=== PATIENT | male | born 1960 | race African-American/Black ===

== ENCOUNTER 2016-08-30 10:17 | Inpatient (IN) | payer MEDICARE, OTHER ==
[~2016-08-30] VITALS: Ht 172.7 cm; Wt 109.9 kg
[~2016-08-30 10:17] MED LIST: ASPI1CPM8 PO; CLON-379 PO; DOXA1TAB38 PO; DOXA4TAB2 PO; ENAL20TA73 PO; GLYB1TAB3 PO; LOSA100T7 PO; NIFE60TA12 PO; SAXA5TAB2 PO; SMV40T PO; TAMS0.4C2 PO
[2016-08-30] MEDS ORDERED: CLON0.2T5 PO (11:03)
[2016-08-30] MEDS ORDERED: GABA100C14 PO (11:15)
[2016-08-30] MEDS ORDERED: SAXA5TAB2 PO (11:15)
[2016-08-30] MEDS ORDERED: HYD25 PO (11:16)
[2016-08-30] MEDS ORDERED: VALS320T11 PO (11:16)
[2016-08-30] MEDS ORDERED: METF500T4 PO (11:16)
[2016-08-30] MEDS ORDERED: LISI10TA2 PO (11:17)
--- NOTE | 2016-08-30 11:39 | RADRPT ---
PROCEDURE: CT Brain without contrast. CLINICAL INDICATION: Possible stroke. Left-sided weakness. TECHNIQUE: CT scan of the brain was performed on a multidetector high-resolution CT scan. Axial im aging was obtained of the brain without contrast administration. Coronal and sagittal reformatted i mages were obtained from the axial source images. Standard CT scan of the head without contrast prot ocols were performed. The total exam CTDI equals 50.33 mGy and the total exam DLP equals 715.55 mGy-cm. One or more of the following dose reduction techniques were used: - Automated exposure control. - Adjustment of the mA and/or kV according to patient size. Use of iterative reconstruction technique. COMPARISON: None FINDINGS: The ventricular system and peripheral CSF spaces are proportionate prominent consistent with mild ge neralized cerebral atrophy. Negative for intracranial masses hemorrhages or midline shift. Mild no nspecific periventricular deep white matter change consistent with chronic microvascular ischemic ch anges. The rangel-white matter interfaces unremarkable. New there is misregistration artifact presen t but no definite calvarial fracture or destructive lesion. There is mild bilateral ethmoid sinus d isease. Remainder the paranasal sinuses and mastoids visualized are unremarkable. IMPRESSION: 1. No evidence of intracranial masses hemorrhages or midline shift. 2. Mild nonspecific chronic microvascular scan changes. 3. Mild bilateral ethmoid sinus disease. RPTAT:AAJJ Physician Nathan Date Time Electronically viewed and signed by Physician Nathan on 08/30/2016 11:39 BM/
[2016-08-30 11:40] LABS: BASOPHILS % 0.4 % (0.0-2.0); EOSINOPHILS # 0.1 10^3/ul (0.0-0.5); EOSINOPHILS % 0.9 % (0.0-7.0); HEMATOCRIT 42.2 % (42.0-52.0); HEMOGLOBIN 14.5 g/dl (14.0-18.0); LYMPHOCYTES # 1.6 10^3/ul (0.8-2.9); LYMPHOCYTES % 25.7 % (15.0-51.0); MEAN CORPUSCULAR HEMOGLOBIN 31.6 pg (29.0-33.0); MEAN CORPUSCULAR HGB CONC 34.4 g/dl (32.0-37.0); MEAN PLATELET VOLUME 8.7 fl (7.4-10.4); MONOCYTE # 0.6 10^3/ul (0.3-0.9); MONOCYTES % 9.8 % (0.0-11.0); NEUTROPHILS % 63.2 % (39.0-77.0); PLATELET COUNT 218 10^3/UL (140-440); RED BLOOD COUNT 4.59 10^6/ul (4.70-6.10); RED CELL DISTRIBUTION WIDTH 13.6 % (11.5-14.5); UNCORRECTED WBC 6.3 10^3/ul (4.8-10.8); WHITE BLOOD COUNT 6.3 10^3/ul (4.8-10.8)
[2016-08-30 11:42] LABS: CHLORIDE 93 mmol/L (97-110); SODIUM 138 mmol/L (135-144)
[2016-08-30 11:43] LABS: POTASSIUM 3.3 mmol/L (3.5-5.1)
[2016-08-30 11:45] LABS: CREATININE 0.83 mg/dl (0.61-1.24)
[2016-08-30 11:46] LABS: ANION GAP 13 (8-16); BLOOD UREA NITROGEN 12 mg/dl (7-20); CALCIUM 9.2 mg/dl (8.4-10.2); CARBON DIOXIDE 35 mmol/L (21-31); GLUCOSE 300 mg/dl (70-220)
[2016-08-30 11:47] LABS: CONDITION 1
[2016-08-30] MEDS ORDERED: INSULIN LISPRO 100 UNIT/ML VIAL SC STA (11:57)
[2016-08-30] MEDS ORDERED: ASPIRIN 325 MG TAB PO ONE (12:00)
[2016-08-30 12:02] LABS: TROPONIN-I < 0.012 ng/ml (0.00-0.12)
--- NOTE | 2016-08-30 12:04 | RADRPT ---
PROCEDURE: XR Chest. CLINICAL INDICATION: chest pain, CVA TECHNIQUE: Single frontal view of the chest was obtained COMPARISON: 08/19/2009 FINDINGS: The heart and mediastinum are within normal limits. The lungs are clear. There is no pleural effusion or pneumothorax. RPTAT: AA IMPRESSION: No acute disease. .Clyde Noriega MD, MD Date Time Electronically viewed and signed by .Clyde Noriega MD, MD on 08/30/2016 12:04 .S/
[2016-08-30] MEDS ORDERED: ACETAMINOPHEN 325 MG TAB PO PRN (12:30)
[2016-08-30] MEDS ORDERED: ONDANSETRON 4 MG INJ IV PRN (12:30)
[2016-08-30] MEDS: SOD CHLORIDE 0.9% 1,000 ML IV SCH (12:57)
[2016-08-30] MEDS ORDERED: ONDANSETRON 4 MG TAB PO PRN (13:00)
[2016-08-30] MEDS ORDERED: GLUCOSE GEL 15 GRAM TUBE BUCCAL PRN (13:00)
[2016-08-30] MEDS ORDERED: DOCUSATE SODIUM 100 MG CAP PO PRN (13:00)
[2016-08-30] MEDS ORDERED: GLUCAGON 1 MG INJ IM PRN (13:00)
[2016-08-30] MEDS ORDERED: NACL 0.9% 3 ML SYG IV SCH (13:00)
[2016-08-30] MEDS ORDERED: GLUCOSE GEL 15 GRAM TUBE PO PRN ×2 (13:00)
[2016-08-30] MEDS ORDERED: DEXTROSE 50% 50 ML SYRINGE IV PRN ×2 (13:00)
--- NOTE | 2016-08-30 13:31 | ERA ---
ER Documentation Chief Complaint Date/Time DATE: 08/30/16 TIME: 13:27 Chief Complaint headache and left side body numbness for 4 days. unsteady gait HPI Patient is a 48-year-old male with stroke, hypertension, and diabetes who presents with stroke. The patient was seen by Dr. Turpin in the office today and was sent to the ER for stroke. The patient has a history of stroke as well. The patient has had tearing from his left eye and left arm numbness. He says "I cannot feel it". He has slurred speech as well. The symptoms started 4 -5 days ago. Upon review of old medical records he has multiple visits for various complaints. ROS All systems reviewed and are negative except as per history of present illness. Medications Home Meds Reported Medications Lisinopril* (Lisinopril*) 10 Mg Tablet, 10 MG PO DAILY, #30 TAB 08/30/16 Metformin* (Glucophage*) 500 Mg Tab, 500 MG PO BID, #30 TAB 08/30/16 Valsartan* (Diovan*) 320 Mg Tablet, 320 MG PO DAILY, TAB 08/30/16 Hydrochlorothiazide* (Hydrochlorothiazide*) 25 Mg Tab, 25 MG PO DAILY, #30 TAB 08/30/16 Saxagliptin Hcl* (Onglyza*) 5 Mg Tablet, 5 MG PO DAILY, TAB 08/30/16 Gabapentin* (Gabapentin*) 100 Mg Capsule, 100 MG PO TID, #90 CAP 08/30/16 Clonidine Hcl* (Clonidine Hcl*) 0.2 Mg Tablet, 0.2 MG PO Q8, TAB 08/30/16 Nifedipine* (Nifedical XL*) 60 Mg/Bottle Tab.osm.24, 60 MG PO DAILY 12/01/12 Doxazosin Mesylate* (Cardura*) 4 Mg Tablet, 4 MG PO DAILY 12/01/12 Discontinued Reported Medications Losartan Potassium* (Losartan Potassium*) 100 Mg Tablet, 100 MG PO DAILY 12/01/12 Aspirin-Dipyridamole* (Aggrenox*) 1 Each Cpmp.12hr, 1 EACH PO BID 12/01/12 Glyburide, Micro-Metformin Hcl (Glyburid-Metformin) 1 Tab Tablet, 1 TAB PO BID 12/01/12 Enalapril Maleate* (Vasotec*) 20 Mg Tablet, 20 MG PO DAILY 12/01/12 Doxazosin Mesylate* (Cardura*) 1 Mg Tablet, 1 MG PO DAILY 12/01/12 Tamsulosin Hcl* (Tamsulosin Hcl*) 0.4 Mg Cap.er.24h, 0.4 MG PO DAILY 12/01/12 Saxagliptin Hcl* (Onglyza*) 5 Mg Tablet, 5 MG PO DAILY 12/01/12 Simvastatin (Simvastatin) 40 Mg Tablet, 40 MG PO HS 12/01/12 Clonidine Hcl* (Clonidine Hcl*) 0.1 Mg Tab, 0.3 MG PO TID 12/01/12 Allergies Allergies: Coded Allergies: No Known Drug Allergy (Verified Allergy, Unknown, 08/30/16) PMhx/Soc History of Surgery: Yes (knee 1998) Hx Neurological Disorder: Yes (cva 2001) Hx Respiratory Disorders: No Hx Cardiac Disorders: No Hx Miscellaneous Medical Probl: Yes (DM. HTN, HIGH CHOLESTEROL) Hx Alcohol Use: No Hx Substance Use: No Hx Tobacco Use: Yes Smoking Status: Former smoker FmHx Family History: No diabetes Physical Exam Vitals Vital Signs Date Time Temp Pulse Resp B/P Pulse Ox O2 Delivery O2 Flow Rate FiO2 08/30/16 12:43 98.4 51 16 124/81 100 Room Air 08/30/16 10:30 98.1 64 16 110/80 100 Room Air 08/30/16 10:22 98.6 73 20 152/80 98 Physical Exam Const: Mild distress Head: Atraumatic Eyes: Normal Conjunctiva ENT: Normal External Ears, Nose and Mouth. Neck: Full range of motion..~ No meningismus. Resp: Clear to auscultation bilaterally Cardio: Regular rate and rhythm, no murmurs Abd: Soft, non tender, non distended. Normal bowel sounds Skin: No petechiae or rashes Back: No midline or flank tenderness Ext: No cyanosis, or edema Neur: Slurred speech, left-sided facial droop, numbness of the left arm Psych: Normal Mood and Affect Result Diagram: 08/30/16 1030 08/30/16 1030 Results 24 hrs Laboratory Tests Test 08/30/16 10:30 08/30/16 11:54 Anion Gap 13 Basophils # 0.010^3/ul Basophils % 0.4% Blood Urea Nitrogen 12mg/dl Calcium Level 9.2mg/dl Carbon Dioxide Level 35mmol/L Chloride Level 93mmol/L Creatinine 0.83mg/dl Eosinophils # 0.110^3/ul Eosinophils % 0.9% Glucose Level 300mg/dl Hematocrit 42.2% Hemoglobin 14.5g/dl Hemoglobin A1c 10.7% Lymphocytes # 1.610^3/ul Lymphocytes % 25.7% Mean Corpuscular Hemoglobin 31.6pg Mean Corpuscular Hemoglobin Concent 34.4g/dl Mean Corpuscular Volume 92.0fl Mean Platelet Volume 8.7fl Monocytes # 0.610^3/ul Monocytes % 9.8% Neutrophils # 4.010^3/ul Neutrophils % 63.2% Nucleated Red Blood Cells # 0.010^3/ul Nucleated Red Blood Cells % 0.0/100WBC Platelet Count 49296^3/UL Potassium Level 3.3mmol/L Red Blood Count 4.5910^6/ul Red Cell Distribution Width 13.6% Sodium Level 138mmol/L Troponin I < 0.012ng/ml White Blood Count 6.310^3/ul Bedside Glucose 263mg/dL Current Medications Medications (Trade) Dose Ordered Sig/Nadine Route PRN Reason Start Time Stop Time Status Last Admin Dose Admin Insulin Human Lispro (Humalog) 10 unit ONCE STAT SC 08/30/16 11:57 08/30/16 11:58 DC 08/30/16 12:11 Aspirin (Aspirin) 325 mg ONCE ONCE PO 08/30/16 12:00 08/30/16 12:01 DC 08/30/16 12:11 Ondansetron HCl (Zofran Inj) 4 mg ER BRIDGE PRN IV NAUSEA AND/OR VOMITING 08/30/16 12:30 08/31/16 12:29 Acetaminophen (Tylenol Tab) 650 mg ER BRIDGE PRN PO MILD PAIN/FEVER 08/30/16 12:30 08/30/16 12:55 DC Doxazosin Mesylate (Cardura) 4 mg HS PO 08/31/16 21:00 Gabapentin (Neurontin) 100 mg TID PO 08/30/16 13:00 Hydrochlorothiazide (Hydrochlorothiazide) 25 mg DAILY PO 08/31/16 09:00 08/31/16 09:00 DC Lisinopril (Zestril) 10 mg DAILY PO 08/31/16 09:00 Metformin HCl (Glucophage) 500 mg BID PO 08/30/16 21:00 08/30/16 21:00 DC Nifedipine (Procardia Xl) 30 mg DAILY PO 08/31/16 09:00 Saxagliptin Hydrochloride (Onglyza) 5 mg DAILY PO 08/31/16 09:00 Valsartan (Diovan) 160 mg DAILY PO 08/31/16 09:00 08/31/16 09:00 DC Miscellaneous Information 1 ea NOTE XX 08/30/16 13:00 Glucose (Glutose) 15 gm Q15M PRN PO DECREASED GLUCOSE 08/30/16 13:00 Glucose (Glutose) 22.5 gm Q15M PRN PO DECREASED GLUCOSE 08/30/16 13:00 Dextrose (D50w Syringe) 25 ml Q15M PRN IV DECREASED GLUCOSE 08/30/16 13:00 Dextrose (D50w Syringe) 50 ml Q15M PRN IV DECREASED GLUCOSE 08/30/16 13:00 Glucagon (Glucagen) 1 mg Q15M PRN IM DECREASED GLUCOSE 08/30/16 13:00 Glucose (Glutose) 15 gm Q15M PRN BUCCAL DECREASED GLUCOSE 08/30/16 13:00 Hydrochlorothiazide (Hydrochlorothiazide) 12.5 mg DAILY PO 08/31/16 09:00 Metformin HCl (Glucophage) 1,000 mg BID PO 08/30/16 21:00 Insulin Aspart (Novolog Insulin Pen) NOVOLOG *MILD* ALGORITHM WITH MEALS BEDTIME SC 08/30/16 18:00 Miscellaneous Information (* Miscellaneous Pharmacy Order) HYPOGLYCEMIA PROTOCOL w... ONCE ONCE XX 08/30/16 13:00 08/30/16 13:01 DC Miscellaneous Information (* Miscellaneous Pharmacy Order) Discontinue Glyburide, Glipizide,... ONCE ONCE XX 08/30/16 13:00 08/30/16 13:01 DC Miscellaneous Information Discontinue all previ... ONCE ONCE XX 08/30/16 13:00 08/30/16 13:01 DC Sodium Chloride (NS) 1,000 ml @ 70 mls/hr [id number] IV 08/30/16 12:43 08/30/16 12:57 IV Flush (NS 3 ml) 3 ml PER PROTOCOL IV 08/30/16 13:00 Ondansetron HCl (Zofran Tab) 4 mg Q6H PRN PO NAUSEA AND/OR VOMITING 08/30/16 13:00 Aspirin (Aspirin) 81 mg DAILY PO 08/31/16 09:00 Acetaminophen (Tylenol Tab) 650 mg Q6H PRN PO PAIN LEVEL 1-3 OR FEVER 08/30/16 13:00 Docusate Sodium (Colace) 100 mg Q12H PRN PO CONSTIPATION 08/30/16 13:00 Enoxaparin Sodium (Lovenox) 40 mg DAILY SC 08/31/16 09:00 Procedures/MDM EKG read by me: Rate/Rhythm: Regular rate and rhythm at a rate of 60 Intervals: Normal Impression: Sinus rhythm with flipped T waves in the lateral leads CT scan shows no acute process per radiology. Patient is a 48-year-old male with multiple risk factors who presents with what appears to be an acute stroke. He is outside the window for TPA as the symptoms started 4-[address] scan shows no intrarenal hemorrhage or mass. The patient was given aspirin after he passed a swallow evaluation. The patient had NIH stroke scale performed by nursing. The patient will be admitted to a telemetry bed. I spoke with Dr. Turpin who asked me to admit to the panel team. I spoke with Dr. Tapia for admission to a telemetry bed. He has hyperglycemia but no diabetic ketoacidosis and was given 10 units of Humalog subcutaneous. Departure Diagnosis: Primary Impression: Stroke Qualified Code: I63.9 - Cerebrovascular accident (CVA), unspecified mechanism Additional Impressions: Numbness Hyperglycemia Condition: KRISHAN Mays MD Aug 30, 2016 13:31
[2016-08-30 13:41] LABS: INR 1.01; PARTIAL THROMBOPLASTIN TIME 32.5 Sec (25.0-35.0); PROTIME 13.3 Sec (12.2-14.2)
[2016-08-30] MEDS: GABAPENTIN 100 MG CAP PO SCH ×2 (13:42→21:36)
[2016-08-30] MEDS: ACETAMINOPHEN 325 MG TAB PO PRN ×2 (14:03→18:54)
--- NOTE | 2016-08-30 14:22 | RADRPT ---
PROCEDURE: Carotid Doppler ultrasound CLINICAL INDICATION: Carotid stenosis. TIA. TECHNIQUE: Carotid duplex criteria: Multiple real time, rangel scale, and color flow and spectral w aveform analysis Doppler ultrasound images of the carotid bifurcations were obtained. Measurements of carotid stenosis is based on peak systolic and diastolic velocity parameters that correlate the r esidual internal carotid diameter with [place] symptomatic carotid endarterectomy trial (NASC ET) based stenosis levels. COMPARISON: None. FINDINGS: On the right, there is no significant plaque at the internal carotid artery bulb . The peak ICA velocity is 19.6 cm/sec. The ICA/CCA ratio there is 0.6. There is no spectral broadening . The external carotid artery is patent. The vertebral artery has antegrade flow. On the left, there is no significant plaque at the internal carotid artery bulb . The peak ICA velocity is 27.9 cm/sec. The ICA/CCA ratio there is 0.7. There is no spectral broadening . The external carotid artery is patent. The vertebral artery has antegrade flow. IMPRESSION: 1. No significant stenosis of the right internal carotid artery. 2. No significant stenosis of the left internal carotid artery. 3. Antegrade flow in the vertebral arteries. PRIMARY PARAMETERS ADDITIONAL PARAMETERS DEGREE OF STENOSIS: ICA PSV cm/s PLAQUE ESTIMATE % ICA/CCA PSV RATIO ICA E DV cm/s NORMAL <125 cm/s NONE < 2.0 < 40 cm/s < 50% >125 cm/s < 50% > 2.0 > 40 cm/s 50% - 69% 125 -230 cm/s > 50% 2.0 - 4.0 40 - 100 cm/s >70% < OCCLUSION > 230 cm/s > 70% > 4.0 > 100 cm/s TOTAL OCCLUSION UNDETECTABLE VISIBLE PLAQUE 100% N/A N/A RPTAT:AAJJ Physician Kenny Date Time Electronically viewed and signed by Physician Kenny on 08/30/2016 14:22 MARLEN/
[2016-08-30 15:20] VITALS: TEMP 98.6
--- NOTE | 2016-08-30 15:21 | RADRPT ---
PROCEDURE: MRI Brain without contrast. CLINICAL INDICATION: Transient ischemic attack TECHNIQUE: Multiplanar MRI of the brain without contrast was performed on a 3.0 T scanner with the following sequences obtained: T1-weighted, T2-weighted/FLAIR, diffusion weighted (with ADC map), GR E. COMPARISON: CT brain 09/04/2016, MRI brain 04/16/2009 FINDINGS: There is a very small focal area of encephalomalacia at the left frontal lobe anterior - inferiorly, probably post-traumatic given location, with mild adjacent gliosis. No acute/recent ischemic infar ction or intracranial hemorrhage / blood degradation products are identified. No extra-axial fluid collection is seen. There is no mass effect. No midline shift is identified. The ventricles and sulci are mild to moderate enlarged, compatible with a volume loss. Flow voids are identified in the proximal intracranial arteries and dural sinuses suggesting patency . Noted is partial bilateral ethmoid air cell opacification with mucosal thickening, mild to moderate right and mild left sphenoid sinus mucosal thickening, and severe bilateral maxillary sinus mucosal thickening. IMPRESSION: 1. No evidence of acute intracranial pathology. 2. Small area of left frontal encephalomalacia, likely post-traumatic. 3. Mild to moderate volume loss. RPTAT: VV .Manpreet Manning MD, Date Time Electronically viewed and signed by .Manpreet Manning MD, on 08/30/2016 15:21 .O/
--- NOTE | 2016-08-30 16:30 | RADRPT ---
Echocardiogram Report Patient Name: CARISA KOENIG Gender: Male Date: 1960 Study Date: 30-Aug-2016 Group Account Director: Anselmo Lagos RDCS Location: [facility] Ref. Physician: RICK AN Quality: Good Procedures: Transthoracic echocardiogram with complete 2D, M-Mode, and doppler examination. Indications: Transient Ischemic Attack. 2D/M Mode Doppler Measurement Value Normal Ranges Measurement Value Normal Ranges LVIDd 2D 5.4 3.5 - 5.6 cm AV Peak Elliot 1.5 m/sec LVIDs 2D 2.8 2.1 - 4.1 cm AV Peak PG 9.0 mmHg FS 2D 48.2 % LVOT Peak Elliot 1.3 m/sec LVPWd 2D 1.1 0.6 - 1.1 cm LVOT Peak PG 7.0 mmHg IVSd 2D 1.0 0.6 - 1.1 cm MV E Peak Elliot 0.6 m/sec IVS/LVPW 2D 1.0 MV A Peak Elliot 0.8 m/sec AoR Diam 2D 3.0 2.0 - 3.7 cm MV E/A 0.8 LA/Ao 2D 1 0 - 1 MV Decel Time 225 msec EDV 2D 155.0 cm3 MV E/A 0.8 ESV 2D 21.5 cm3 LA Dimen 2D 3.2 2.3 - 4.0 cm Findings Left Ventricle: Normal left ventricular systolic function. Normal left ventricular cavity size. Mild concentric left ventricular hypertrophy. Ejection fraction is visually estimated at 60 %. Tissue Doppler/Mitral Doppler indices are consistent with impaired relaxation (Stage I diastolic dysfunction). Right Ventricle: Normal right ventricular size. Normal right ventricular systolic function. Left Atrium: The left atrium is normal in size. Right Atrium: The right atrium is normal in size. Mitral Valve: Normal appearance and function of the mitral valve with trace physiologic regurgitation. Aortic Valve: Normal appearance of the aortic valve. No significant aortic stenosis or insufficiency. Tricuspid Valve: Normal appearance of the tricuspid valve. Unable to obtain RVSP due to minimal presence of tricuspid regurgitation. Pulmonic Valve: Normal pulmonic valve appearance. There is trace pulmonic regurgitation. Pericardium: Normal pericardium with no significant pericardial effusion. Aorta: Normal aortic root. IVC: Normal size and normal respiratory collapse consistent with normal right atrial pressure. Conclusions 1.Normal left ventricular systolic function. Normal left ventricular cavity size. Mild concentric left ventricular hypertrophy. Ejection fraction is visually estimated at 60 %. Tissue Doppler/Mitral Doppler indices are consistent with impaired relaxation (Stage I diastolic dysfunction). 2.Normal appearance and function of the mitral valve with trace physiologic regurgitation. 3.Normal appearance of the tricuspid valve. Unable to obtain RVSP due to minimal presence of tricuspid regurgitation. 4.Normal pulmonic valve appearance. There is trace pulmonic regurgitation. Electronically Signed By: Karlos Ramon 30-Aug-2016 16:28:59 -0800 Patient Name: CARISA KOENIG Study Date: 30-Aug-2016 [id number]
[2016-08-30 17:06] VITALS: PULSE 51
[2016-08-30 17:38] VITALS: Ht 172.7 cm; Wt 109.9 kg
[2016-08-30] MEDS: INSULIN ASPART [NOVOLOG] 3 ML PEN SC SCH ×2 (17:48→21:00)
[2016-08-30] MEDS ORDERED: LINAGLIPTIN 5 MG TABLET PO SCH (18:30)
--- NOTE | 2016-08-30 18:44 | CONS ---
Date/Time of Note Date/Time of Note DATE: 08/30/16 TIME: 18:37 Assessment/Plan Assessment/Plan Problems: (1) Morbid obesity due to excess calories Status: Chronic Comment: While is in the hospital will have him on a diabetic diet with calorie restriction. (2) Type 2 diabetes mellitus with hyperglycemia, without long-term current use of insulin Status: Chronic Comment: His current level of diabetic control is poor. I do not believe this represents hypercortisolism as there are no outward stigmata of hypercortisolism on the physical exam. He may however have another interesting cord endocrine abnormality (3) Hypertension Status: Chronic Comment: At this point is labeled as chronic hypertension. The question my mind is whether or not he might have primary hyperaldosteronism. An male left salicylate less common diagnosis but given the persistent hypokalemia over the years despite being on ECTOR and arms I am questioning this. We will go ahead and do aldosterone and plasma rennin activities (4) Hypokalemia Status: Chronic Comment: As above we will replace (5) Diastolic dysfunction Status: Chronic Comment: Noted. He probably would do well instead of being on Procardia to be on either verapamil or diltiazem or a low-dose beta-mindi. (6) Obstructive sleep apnea Status: Chronic Comment: He refuses to wear the CPAP mask (7) Hyperlipidemia associated with type 2 diabetes mellitus Status: Chronic Comment: Noted Consultation Date/Type/Reason Admit Date/Time Aug 30, 2016 at 10:42 Date of Consultation: Aug 30, 2016 Type of Consultation: Endocrinology Reason for Consultation Diabetes mellitus type 2 with poor control; significant hypertension with persistent hypokalemia despite the use of ECTOR and ARB drug Referring Provider: RICK AN MD Hx of Present Illness 56-year-old gentleman with a history of hypertension and diabetes mellitus type 2. He has a somewhat challenging historian. He came in with the possibility of a new acute neurologic event. He is somewhat guarded in his history. In review of his old records it turns out he has a long history of very severe hypertension and has had hypokalemia. An old abdominal CT scan is in the chart and while the impression does not identify an adrenal abnormality it is actually in there. 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, 2009 ; tobacco usage; gastroesophageal reflux disease; nonobstructive coronary disease on cardiac catheterization 2009 Medical History: diabetes, high cholesterol, hypertension Past Surgical History Status post post left knee surgery; reported status post vascular bypass to both lower extremities (I am not certain that he actually had that right now I believe is describing his coronary angiography) Family History Significant Family History: diabetes, hypertension Social History Alcohol Use: none Smoking Status: Former smoker (He reports he recently quit smoking but the chart indicates that he told others he quit in 2001 I suspect this more recent than that) Drug Use: none Exam/Review of Systems Vital Signs Vitals Vital Signs Date Time Temp Pulse Resp B/P Pulse Ox O2 Delivery O2 Flow Rate FiO2 08/30/16 17:06 51 08/30/16 15:20 98.6 16 141/67 100 Room Air Exam Constitutional: alert, oriented Respiratory: clear to auscultation, normal air movement Cardiovascular: nl pulses, regular rate and rhythm Results Result Diagram: 08/30/16 1030 08/30/16 1030 Results 24 hrs Laboratory Tests Test 08/30/16 10:30 08/30/16 11:54 08/30/16 17:06 Activated Partial Thromboplast Time 32.5 Anion Gap 13 Basophils # 0.0 Basophils % 0.4 Blood Urea Nitrogen 12 Calcium Level 9.2 Carbon Dioxide Level 35 H Chloride Level 93 L Creatinine 0.83 Eosinophils # 0.1 Eosinophils % 0.9 Glucose Level 300 H Hematocrit 42.2 Hemoglobin 14.5 Hemoglobin A1c 10.7 H INR International Normalized Ratio 1.01 Lymphocytes # 1.6 Lymphocytes % 25.7 Mean Corpuscular Hemoglobin 31.6 Mean Corpuscular Hemoglobin Concent 34.4 Mean Corpuscular Volume 92.0 Mean Platelet Volume 8.7 Monocytes # 0.6 Monocytes % 9.8 Neutrophils # 4.0 Neutrophils % 63.2 Nucleated Red Blood Cells # 0.0 Nucleated Red Blood Cells % 0.0 Platelet Count 218 Potassium Level 3.3 L Prothrombin Time 13.3 Prothrombin Time Ratio 1.0 Red Blood Count 4.59 L Red Cell Distribution Width 13.6 Sodium Level 138 Troponin I < 0.012 White Blood Count 6.3 Bedside Glucose 263 H 126 Medications Medications Current Medications Gabapentin (Neurontin) 100 mg TID PO Last administered on 08/30/16 13:42; Admin Dose 100 MG; Start 08/30/16 at 13:00 Saxagliptin Hydrochloride (Onglyza) 5 mg DAILY PO ; Start 08/31/16 at 09:00 Miscellaneous Information 1 ea NOTE XX ; Start 08/30/16 at 13:00 Glucose (Glutose) 15 gm Q15M PRN PO DECREASED GLUCOSE; Start 08/30/16 at 13:00 Glucose (Glutose) 22.5 gm Q15M PRN PO DECREASED GLUCOSE; Start 08/30/16 at 13: 00 Dextrose (D50w Syringe) 25 ml Q15M PRN IV DECREASED GLUCOSE; Start 08/30/16 at 13:00 Dextrose (D50w Syringe) 50 ml Q15M PRN IV DECREASED GLUCOSE; Start 08/30/16 at 13:00 Glucagon (Glucagen) 1 mg Q15M PRN IM DECREASED GLUCOSE; Start 08/30/16 at 13:00 Glucose (Glutose) 15 gm Q15M PRN BUCCAL DECREASED GLUCOSE; Start 08/30/16 at 13 :00 Hydrochlorothiazide (Hydrochlorothiazide) 12.5 mg DAILY PO ; Start 08/31/16 at 09:00 Metformin HCl 1000 mg 1,000 mg BID PO ; Start 08/30/16 at 21:00 Sodium Chloride (NS) 1,000 ml @ 70 mls/hr [id number] IV Last administered on 08/30 12:57; Admin Dose 70 MLS/HR; Start 08/30/16 at 12:43 Ondansetron HCl (Zofran Tab) 4 mg Q6H PRN PO NAUSEA AND/OR VOMITING; Start at 13:00 Aspirin (Aspirin) 81 mg DAILY PO ; Start 08/31/16 at 09:00 Acetaminophen (Tylenol Tab) 650 mg Q6H PRN PO PAIN LEVEL 1-3 OR FEVER Last administered on 08/30/16 14:03; Admin Dose 650 MG; Start 08/30/16 at 13:00 Docusate Sodium (Colace) 100 mg Q12H PRN PO CONSTIPATION; Start 08/30/16 at 13: 00 Enoxaparin Sodium (Lovenox) 40 mg DAILY SC ; Start 08/31/16 at 09:00 Lisinopril (Zestril) 20 mg DAILY PO ; Start 08/31/16 at 09:00; Status UNV Doxazosin Mesylate (Cardura) 8 mg HS PO ; Start 08/31/16 at 21:00; Status UNV YARY MAGALLON MD Aug 30, 2016 18:44
[2016-08-30] MEDS: POTASSIUM CHLORIDE (SR) 20 MEQ TAB PO SCH (18:54)
[2016-08-30 20:15] VITALS: BP 151/96; RESP 18
[2016-08-30 20:46] VITALS: PULSE 56
[2016-08-30] MEDS ORDERED: DOXAZOSIN 4 MG TAB PO SCH (21:00)
[2016-08-30] MEDS ORDERED: metFORMIN 500 MG TAB PO SCH (21:00)
[2016-08-30] MEDS: metFORMIN 500 MG TAB PO SCH (21:36)
[2016-08-31] VITALS (13 sets, daily range): BP systolic 154–193; BP diastolic 80–93; PULSE 61–75; RESP 18–21
--- NOTE | 2016-08-31 02:39 | HP ---
DATE OF ADMISSION: 08/30/2016 CONSULTANTS: 1. Neurology. 2. Cardiology. PRIMARY CARE PHYSICIAN: Dr. Turpin. CHIEF COMPLAINT: Lightheadedness and gait disturbances. HISTORY OF PRESENT ILLNESS: This is a 56-year-old gentleman with past medical history of CVA in 200 9, hypertension, diabetes mellitus, dyslipidemia, CVA with left-sided residual, and speech impairmen t, who had an appointment with his primary care physician this morning and was found to have lighthe adedness and dizziness and gait disturbance. He was transferred to [facility] for further evaluation and rule out CVA. The patient upon arrival to the emergency room, was found to have a temperature of 98.6, pulse 73, respiration rate 20, blood pressure 152/80, oxygen 98% on room air. CT of the brain was obtained, which showed no evidence of intracranial masses, hemorrhage or midline shift, mild nonspecific chronic microvascular scan changes, mild bilateral ethmoid sinus dis ease. Patient's EKG demonstrated sinus rhythm with flipped T-wave in the lateral leads, regular rhy thm and rate with ventricular rate of 60. The patient denies having any chest pain, shortness of br eath, nausea, vomiting, diarrhea, headache. Positive for dizziness. No lightheadedness. No change in visual acuity, diplopia, photophobia. No abdominal pain. No dysuria, hematuria, urgency, incon tinence. No recent travel history. No sick contact. No recent fall or trauma to his head or neck. No restricted range of motion in upper and lower extremities, or neck pain. PAST MEDICAL AND SURGICAL HISTORY: As above per HPI. MEDICATIONS: 1. Clonidine 0.2 mg 2. Doxazosin/Cardura 4 mg. 3. Gabapentin 100 mg. 4. Hydrochlorothiazide 25 mg. 5. Lisinopril 10 mg. 6. Metformin 500 mg. 7. Nifedipine XL 60 mg. 8. Onglyza 5 mg. 9. Diovan 325 mg. ALLERGIES: NO KNOWN DRUG ALLERGIES. FAMILY HISTORY: Positive for hypertension, diabetes mellitus, and dyslipidemia. SOCIAL HISTORY: Denies any history of smoking, alcohol, illicit drugs, although according to the art, he is a former smoker. REVIEW OF SYSTEMS: As above per HPI. Otherwise, 12 review of systems was found to be negative. PHYSICAL EXAMINATION: VITAL SIGNS: Temperature 98.6, pulse 88, respiration rate 16, blood pressure 141/67, oxygen 100% on room air. GENERAL APPEARANCE: The patient is lying in bed comfortably, no distress. He is awake, alert, orie nted. He is able to answer my questions properly. EYES AND ENT: lids are normal. Pupils are normal. Extraocular normal. Hearing grossly norm al. Lips, teeth, and gums are normal. Oral mucosa moist. NECK: Supple. Trachea is midline. No lymphadenopathy. RESPIRATORY: Effort is normal. Clear to auscultation bilaterally. CARDIOVASCULAR: Normal S1, S2. Regular rhythm and rate. No murmur, no bruits, no edema. Peripher al pulses, radial pulses palpable. Cap refill is normal. CHEST: Normal expansion of thorax during inspiration. GASTROINTESTINAL: Abdomen is soft, nontender, not distended. Bowel sounds present. No guarding, n o rebound. GENITOURINARY: Deferred. MUSCULOSKELETAL: Upper and lower extremities within normal limits. There is asymmetric strength of the left upper and lower extremity with minimal change of strength in the left upper extremity. It is minimal weakness, which according to him is chronic. NEUROLOGIC: Cranial nerves II through XII seem grossly intact. PSYCHIATRIC: He is awake, alert, oriented. LABORATORY WORK AND IMAGING: WBC 6.3, hemoglobin 14.5, hematocrit 42.2, platelets 218. Sodium 138, potassium 3.3, chloride 95, bicarbonate 35, BUN 12, creatinine 0.83, glucose 300, hemoglobin 10.7, calcium 9.2. Troponin 0.012. PT 13.3, INR 1.01. IMAGING: MRI of the brain showed no evidence of acute intracranial pathology, small area left front al encephalomalacia likely post-traumatic, mild to moderate volume loss. Carotid Doppler showed no significant stenosis of the right internal carotid artery, no significant stenosis of the left inter nal carotid artery, antegrade flow to vertebral arteries. A 2D echocardiogram showed normal ejectio n fraction with stage I diastolic dysfunction, mild concentric left ventricular hypertrophy, normal appearance and function of mitral valve, normal pulmonic valve, normal appearance of tricuspid valve . There is trace pulmonic regurgitation. ASSESSMENT AND PLAN: 1. Lightheadedness and dizziness with a history of cerebrovascular accident, to rule out transient ischemic attack. This also could have been secondary to polypharmacy and multiple blood pressure me dications. We will adjust patient's blood pressure medication. Neurology and Cardiology has been c onsulted. 2. Essential hypertension. As stated above, patient is polypharmacy. We will reevaluate and treat accordingly. 3. Diabetes mellitus, uncontrolled upon admission. Hemoglobin A1c is greater than 10. The patient has been placed on insulin sliding scale. Continue metformin. Plastics Fabricator And Assembler has been consulted. Patient has been placed on low carb diet. Continue Onglyza and metformin, and follow endocrinolog y recommendations. 4. History of cerebrovascular accident. The patient has been placed on aspirin. Continue blood pr essure treatment. Follow up lipid panel, and place patient on and statin accordingly. 5. For deep venous thrombosis prophylaxis, the patient has been placed on Lovenox. 6. For gastrointestinal prophylaxis, not indicated at this time. 7. We will continue to monitor patient closely. Further recommendations, management, and treatment as per clinical course. Total amount of time was spent for evaluation of patient and admission workup: 40 minutes. Dictated By: RICK WILSON/NABIL Conf#: [id number] DID#: [id number]
[2016-08-31] MEDS: ACETAMINOPHEN 325 MG TAB PO PRN ×2 (02:46→08:55)
[2016-08-31] MEDS: POTASSIUM CHLORIDE (SR) 20 MEQ TAB PO SCH ×2 (02:47→05:47)
[2016-08-31] MEDS: SOD CHLORIDE 0.9% 1,000 ML IV SCH (04:08)
[2016-08-31] MEDS: GABAPENTIN 100 MG CAP PO SCH ×3 (08:54→20:48)
[2016-08-31] MEDS: metFORMIN 500 MG TAB PO SCH ×2 (08:54→20:49)
[2016-08-31] MEDS: ASPIRIN 81 MG TAB PO SCH (08:55)
[2016-08-31] MEDS: ENOXAPARIN 40 MG/0.4 ML SYG SC SCH ×2 (08:56→09:00)
[2016-08-31] MEDS: INSULIN ASPART [NOVOLOG] 3 ML PEN SC SCH ×4 (08:57→20:50)
[2016-08-31] MEDS ORDERED: LISINOPRIL 10 MG TAB PO SCH (09:00)
[2016-08-31] MEDS ORDERED: VALSARTAN 160 MG TAB PO SCH (09:00)
[2016-08-31] MEDS ORDERED: NIFEdipine (XL) 60 MG TAB PO SCH (09:00)
[2016-08-31] MEDS ORDERED: HYDROCHLOROTHIAZIDE 25 MG TAB PO SCH (09:00)
[2016-08-31] MEDS ORDERED: SAXAGLIPTIN HYDROCHLORIDE 5 MG TAB PO SCH (09:00)
[2016-08-31] MEDS ORDERED: HYDROCHLOROTHIAZIDE 12.5 MG CAP PO SCH (09:00)
[2016-08-31] MEDS ORDERED: LISINOPRIL 20 MG TAB PO SCH (09:00)
[2016-08-31 09:38] LABS: POTASSIUM 3.6 mmol/L (3.5-5.1)
[2016-08-31 09:41] LABS: CREATININE 0.87 mg/dl (0.61-1.24)
[2016-08-31 09:42] LABS: CALCIUM 9.7 mg/dl (8.4-10.2); CHOL/HDL RATIO 4.9 RATIO; MAGNESIUM 1.9 mg/dl (1.7-2.5)
[2016-08-31] MEDS: LINAGLIPTIN 5 MG TABLET PO SCH (09:51)
[2016-08-31 10:27] LABS: BASOPHIL # 0.1 10^3/ul (0.0-0.1); BASOPHILS % 0.6 % (0.0-2.0); EOSINOPHILS # 0.1 10^3/ul (0.0-0.5); EOSINOPHILS % 0.6 % (0.0-7.0); HEMATOCRIT 44.2 % (42.0-52.0); HEMOGLOBIN 15.2 g/dl (14.0-18.0); LYMPHOCYTES # 1.9 10^3/ul (0.8-2.9); MEAN CORPUSCULAR HEMOGLOBIN 31.3 pg (29.0-33.0); MEAN CORPUSCULAR HGB CONC 34.4 g/dl (32.0-37.0); MEAN CORPUSCULAR VOLUME 91.1 fl (82.0-101.0); MEAN PLATELET VOLUME 10.1 fl (7.4-10.4); MONOCYTE # 0.6 10^3/ul (0.3-0.9); MONOCYTES % 6.7 % (0.0-11.0); NEUTROPHIL # 5.6 10^3/ul (1.6-7.5); PLATELET COUNT 261 10^3/UL (140-415); RED BLOOD COUNT 4.85 10^6/ul (4.70-6.10); RED CELL DISTRIBUTION WIDTH 12.7 % (11.5-14.5); WHITE BLOOD COUNT 8.2 10^3/ul (4.8-10.8)
--- NOTE | 2016-08-31 11:37 | CONS ---
Date/Time of Note Date/Time of Note DATE: 08/31/16 TIME: 11:31 Assessment/Plan Assessment/Plan Chief Complaint/Hosp Course 56 year old M with hx of obesity, HTN, DM, previous CVA with residual left sided weakness admitted with dizziness and gait instability. MRI shows no acute infarction, old left frontal encephalomalacia. -continue aspirin 81 mg for secondary stroke prevention optimization of diabetes HBA1C 10.7%, LDL currently at goal -BP<140/90 anti-hypertensives currently being adjusted -PT/OT evaluation no further neurologic work up advised at this time, continue current management thank you for involving me in his care Problems: Consultation Date/Type/Reason Admit Date/Time Aug 30, 2016 at 10:42 Date of Consultation: Aug 31, 2016 Type of Consultation: Neurology Reason for Consultation evaluation for CVA Referring Provider: RICK AN MD Hx of Present Illness 56 year old male with history of CVA 2008, hypertension, DM, dysarthria admitted with lightheadedness and dizziness, difficulty ambulating. He reports he came to the hospital with symptoms of burning eyes, and sore throat. He denies any current new neurologic symptoms, denies headache, loss of vision, new facial droop or dysarthria, no aphasia, no focal weakness. MRI Brain shows no acute pathology, left frontal encephalomalacia likely post-traumatic. no complaints Constitutional: no complaints (Denies fever chills or sweats) Respiratory: no complaints (No shortness of breath no wheezing) Cardiovascular: no complaints (Denies chest pain nausea or vomiting) Past Medical History Medical History: diabetes, high cholesterol, hypertension Social History Alcohol Use: none Smoking Status: Former smoker (He reports he recently quit smoking but the chart indicates that he told others he quit in 2001 I suspect this more recent than that) Drug Use: none Exam/Review of Systems Vital Signs Vitals Vital Signs Date Time Temp Pulse Resp B/P Pulse Ox O2 Delivery O2 Flow Rate FiO2 08/31/16 09:56 161/83 08/31/16 08:12 63 08/31/16 08:11 99.0 20 94 08/30/16 15:20 Room Air Intake and Output 08/30/16 08/30/16 08/31/16 15:00 23:00 07:00 Intake Total 1075 ml Balance 1075 ml Exam awake and alert oriented to self hospital date NAD morbidly obese no aphasia follows commands well CN: TEOFILO, VFF blinks to threat intact, Left CN VII palsy per patient old palate upgoing uvula midline scm/trap intact Motor: mild drift in left arm otherwise strength is 5/5 Coordination no ataxia Gait widebased no ataxia Results Result Diagram: 08/31/16 1014 08/31/16 0708 Results 24 hrs Laboratory Tests Test 08/30/16 11:54 08/30/16 17:06 08/30/16 21:38 08/31/16 07:08 Bedside Glucose 263 H 126 137 Anion Gap 18 H Blood Urea Nitrogen 11 Calcium Level 9.7 Carbon Dioxide Level 33 H Chloride Level 96 L Cholesterol Level 133 Cholesterol/HDL Ratio 4.9 Creatinine 0.87 Glucose Level 200 # HDL Cholesterol 27 L LDL Cholesterol, Calculated 63 Magnesium Level 1.9 Potassium Level 3.6 Sodium Level 143 Thyroid Stimulating Hormone (TSH) 0.500 Triglycerides Level 213 H Test 08/31/16 07:46 08/31/16 10:14 Bedside Glucose 202 Basophils # 0.1 Basophils % 0.6 Eosinophils # 0.1 Eosinophils % 0.6 Hematocrit 44.2 Hemoglobin 15.2 Lymphocytes # 1.9 Lymphocytes % 23.0 Mean Corpuscular Hemoglobin 31.3 Mean Corpuscular Hemoglobin Concent 34.4 Mean Corpuscular Volume 91.1 Mean Platelet Volume 10.1 Monocytes # 0.6 Monocytes % 6.7 Neutrophils # 5.6 Neutrophils % 68.40 Nucleated Red Blood Cells # 0.0 Nucleated Red Blood Cells % 0.0 Platelet Count 261 Red Blood Count 4.85 Red Cell Distribution Width 12.7 White Blood Count 8.2 # Medications Medications Current Medications Gabapentin (Neurontin) 100 mg TID PO Last administered on 08/31/16t 08:54; Admin Dose 100 MG; Start 08/30/16 at 13:00 Miscellaneous Information 1 ea NOTE XX ; Start 08/30/16 at 13:00 Glucose (Glutose) 15 gm Q15M PRN PO DECREASED GLUCOSE; Start 08/30/16 at 13:00 Glucose (Glutose) 22.5 gm Q15M PRN PO DECREASED GLUCOSE; Start 08/30/16 at 13: 00 Dextrose (D50w Syringe) 25 ml Q15M PRN IV DECREASED GLUCOSE; Start 08/30/16 at 13:00 Dextrose (D50w Syringe) 50 ml Q15M PRN IV DECREASED GLUCOSE; Start 08/30/16 at 13:00 Glucagon (Glucagen) 1 mg Q15M PRN IM DECREASED GLUCOSE; Start 08/30/16 at 13:00 Glucose (Glutose) 15 gm Q15M PRN BUCCAL DECREASED GLUCOSE; Start 08/30/16 at 13 :00 Hydrochlorothiazide (Hydrochlorothiazide) 12.5 mg DAILY PO Last administered on 08/31/16 08:55; Admin Dose 12.5 MG; Start 08/31/16 at 09:00 Metformin HCl 1000 mg 1,000 mg BID PO Last administered on 08/31/16 08:54; Admin Dose 1,000 MG; Start 08/30/16 at 21:00 Sodium Chloride (NS) 1,000 ml @ 70 mls/hr [id number] IV Last administered on 08/31 04:08; Admin Dose 70 MLS/HR; Start 08/30/16 at 12:43 Ondansetron HCl (Zofran Tab) 4 mg Q6H PRN PO NAUSEA AND/OR VOMITING; Start at 13:00 Aspirin (Aspirin) 81 mg DAILY PO Last administered on 08/31/16 08:55; Admin Dose 81 MG; Start 08/31/16 at 09:00 Acetaminophen (Tylenol Tab) 650 mg Q6H PRN PO PAIN LEVEL 1-3 OR FEVER Last administered on 08/31/16 08:55; Admin Dose 650 MG; Start 08/30/16 at 13:00 Docusate Sodium (Colace) 100 mg Q12H PRN PO CONSTIPATION; Start 08/30/16 at 13: 00 Enoxaparin Sodium (Lovenox) 40 mg DAILY SC ; Start 08/31/16 at 09:00 Lisinopril (Zestril) 20 mg DAILY PO Last administered on 08/31/16 08:55; Admin Dose 20 MG; Start 08/31/16 at 09:00 Doxazosin Mesylate (Cardura) 8 mg HS PO ; Start 08/31/16 at 21:00 Linagliptin (Tradjenta) 5 mg DAILY PO Last administered on 08/31/16 09:51; Admin Dose 5 MG; Start 08/31/16 at 10:00 BABATUNDE LUCIA MD Aug 31, 2016 11:37
[2016-08-31] MEDS ORDERED: POTASSIUM CHLORIDE (SR) 20 MEQ TAB PO STA (13:50)
--- NOTE | 2016-08-31 14:07 | CONS ---
Date/Time of Note Date/Time of Note DATE: 08/31/16 TIME: 14:04 Assessment/Plan Assessment/Plan Chief Complaint/Hosp Course 56-year-old gentleman with a history of hypertension and diabetes mellitus type 2. He has a somewhat challenging historian. He came in with the possibility of a new acute neurologic event. He is somewhat guarded in his history. In review of his old records it turns out he has a long history of very severe hypertension and has had hypokalemia. An old abdominal CT scan is in the chart and while the impression does not identify an adrenal abnormality it is actually in there. On the left-hand side Problems: (1) Hypertension Status: Chronic Comment: It is not 100% clear to me that this hypertension is primary essential hypertension; is quite possible this is a representation of hyperaldosteronism specifically primary hyperaldosteronism. The laboratory testing for this is drawn and in the lab but will take several days to come back. In the meantime given the persistent hypokalemia would like to replace his hydrochlorothiazide with low-dose Spironolactone at 25 mg once a day. He will continue on full dose ECTOR inhibitor as full dose alpha blockade. I would not use it dihydropyridine calcium channel mindi instead looking to use 1 of the other calcium channel blockers especially diltiazem versus a very low-dose beta-mindi given the known diastolic dysfunction (2) Hypokalemia Status: Chronic Comment: Correcting nicely please note that the aldosterone plasma renin activity were drawn while his serum potassium was 3.6 those results are pending (3) Obstructive sleep apnea Status: Chronic Comment: Noted the patient declines treatment (4) Type 2 diabetes mellitus with hyperglycemia, without long-term current use of insulin Status: Chronic Comment: His sugars are coming down with the minimal adjustments. Please note he is reticent to make any more aggressive changes. (5) Diastolic dysfunction Status: Chronic Comment: As above Consultation Date/Type/Reason Admit Date/Time Aug 30, 2016 at 10:42 Initial Consult Date 08/31/16 Type of Consultation: Endocrinology Reason for Consultation Diabetes mellitus type 2 out of control; hypertension on multiple medications with persistent hypokalemia Referring Provider: RICK AN MD 24 HR Interval Summary Constitutional: no complaints (Denies fevers chills or sweats) Detailed Summary Respiratory: no complaints Cardiovascular: no complaints Gastrointestinal: no complaints Exam/Review of Systems Vital Signs Vitals Vital Signs Date Time Temp Pulse Resp B/P Pulse Ox O2 Delivery O2 Flow Rate FiO2 08/31/16 12:04 74 08/31/16 11:47 98.4 21 160/80 98 08/30/16 15:20 Room Air Intake and Output 08/30/16 08/30/16 08/31/16 15:00 23:00 07:00 Intake Total 1075 ml Balance 1075 ml Exam Constitutional: alert, oriented Respiratory: clear to auscultation, normal air movement Cardiovascular: nl pulses, regular rate and rhythm Gastrointestinal: nl liver, spleen, non-tender, soft Results Result Diagram: 08/31/16 1014 08/31/16 0708 Results 24 hrs Laboratory Tests Test 08/30/16 17:06 08/30/16 21:38 08/31/16 07:08 08/31/16 07:46 Bedside Glucose 126 137 202 Anion Gap 18 H Blood Urea Nitrogen 11 Calcium Level 9.7 Carbon Dioxide Level 33 H Chloride Level 96 L Cholesterol Level 133 Cholesterol/HDL Ratio 4.9 Creatinine 0.87 Glucose Level 200 # HDL Cholesterol 27 L LDL Cholesterol, Calculated 63 Magnesium Level 1.9 Potassium Level 3.6 Sodium Level 143 Thyroid Stimulating Hormone (TSH) 0.500 Triglycerides Level 213 H Test 08/31/16 10:14 08/31/16 12:16 Basophils # 0.1 Basophils % 0.6 Eosinophils # 0.1 Eosinophils % 0.6 Hematocrit 44.2 Hemoglobin 15.2 Lymphocytes # 1.9 Lymphocytes % 23.0 Mean Corpuscular Hemoglobin 31.3 Mean Corpuscular Hemoglobin Concent 34.4 Mean Corpuscular Volume 91.1 Mean Platelet Volume 10.1 Monocytes # 0.6 Monocytes % 6.7 Neutrophils # 5.6 Neutrophils % 68.40 Nucleated Red Blood Cells # 0.0 Nucleated Red Blood Cells % 0.0 Platelet Count 261 Red Blood Count 4.85 Red Cell Distribution Width 12.7 White Blood Count 8.2 # Bedside Glucose 227 H Medications Medications Current Medications Gabapentin (Neurontin) 100 mg TID PO Last administered on 08/31/16t 12:38; Admin Dose 100 MG; Start 08/30/16 at 13:00 Miscellaneous Information 1 ea NOTE XX ; Start 08/30/16 at 13:00 Glucose (Glutose) 15 gm Q15M PRN PO DECREASED GLUCOSE; Start 08/30/16 at 13:00 Glucose (Glutose) 22.5 gm Q15M PRN PO DECREASED GLUCOSE; Start 08/30/16 at 13: 00 Dextrose (D50w Syringe) 25 ml Q15M PRN IV DECREASED GLUCOSE; Start 08/30/16 at 13:00 Dextrose (D50w Syringe) 50 ml Q15M PRN IV DECREASED GLUCOSE; Start 08/30/16 at 13:00 Glucagon (Glucagen) 1 mg Q15M PRN IM DECREASED GLUCOSE; Start 08/30/16 at 13:00 Glucose (Glutose) 15 gm Q15M PRN BUCCAL DECREASED GLUCOSE; Start 08/30/16 at 13 :00 Metformin HCl 1000 mg 1,000 mg BID PO Last administered on 08/31/16 08:54; Admin Dose 1,000 MG; Start 08/30/16 at 21:00 Sodium Chloride (NS) 1,000 ml @ 70 mls/hr [id number] IV Last administered on 08/31 04:08; Admin Dose 70 MLS/HR; Start 08/30/16 at 12:43 Ondansetron HCl (Zofran Tab) 4 mg Q6H PRN PO NAUSEA AND/OR VOMITING; Start at 13:00 Aspirin (Aspirin) 81 mg DAILY PO Last administered on 08/31/16 08:55; Admin Dose 81 MG; Start 08/31/16 at 09:00 Acetaminophen (Tylenol Tab) 650 mg Q6H PRN PO PAIN LEVEL 1-3 OR FEVER Last administered on 08/31/16 08:55; Admin Dose 650 MG; Start 08/30/16 at 13:00 Docusate Sodium (Colace) 100 mg Q12H PRN PO CONSTIPATION; Start 08/30/16 at 13: 00 Enoxaparin Sodium (Lovenox) 40 mg DAILY SC ; Start 08/31/16 at 09:00 Doxazosin Mesylate (Cardura) 8 mg HS PO ; Start 08/31/16 at 21:00 Linagliptin (Tradjenta) 5 mg DAILY PO Last administered on 08/31/16 09:51; Admin Dose 5 MG; Start 08/31/16 at 10:00 Spironolactone (Aldactone) 25 mg DAILY PO ; Start 08/31/16 at 14:00 Lisinopril (Zestril) 40 mg DAILY PO ; Start 09/01/16 at 09:00 Copies To: CC: SUSAN ANTHONY MD, JOSHUA A MD Aug 31, 2016 14:07
[2016-08-31] MEDS: SPIRONOLACTONE 25 MG TAB PO SCH (14:36)
--- NOTE | 2016-08-31 15:37 | PN ---
Date/Time of Note Date/Time of Note DATE: 08/31/16 TIME: 15:34 Assessment/Plan VTE Prophylaxis VTE Prophylaxis Intervention: LMWH Lines/Catheters IV [facility]ter [facility] (from [facility] Peripheral IV Urinary Cath still in place: No Assessment/Plan Chief Complaint/Hosp Course ASSESSMENT AND PLAN: 1. Lightheadedness and dizziness with a history of cerebrovascular accident, No evidence of acute CVA on MRI of the brain, Neurology and Cardiology has been consulted. 2. Essential hypertension. Better controlled 3. Diabetes mellitus, continue insulin sliding scale and metformin. Videotape Editor has been consulted. Patient has been placed on low carb diet. Continue Onglyza and metformin 4. History of cerebrovascular accident. The patient has been placed on aspirin. Continue blood pressure treatment. Follow up lipid panel is within normal limits, 5. For deep venous thrombosis prophylaxis, the patient has been placed on Lovenox. 6. For gastrointestinal prophylaxis, not indicated at this time. We will continue to monitor patient closely. Further recommendations, management, and treatment as per clinical course. Problems: Subjective 24 Hr Interval Summary Free Text/Dictation Patient continues to complain of having lightheadedness mild headache Denies of any chest pain or shortness of breath No nausea vomiting diarrhea Tolerating p.o. intake Exam/Review of Systems Vital Signs Vitals Vital Signs Date Time Temp Pulse Resp B/P Pulse Ox O2 Delivery O2 Flow Rate FiO2 08/31/16 12:04 74 08/31/16 11:47 98.4 21 160/80 98 08/30/16 15:20 Room Air Intake and Output 08/30/16 08/30/16 08/31/16 15:00 23:00 07:00 Intake Total 1075 ml Balance 1075 ml Exam General: The patient is well-developed, Not in acute distress. HEENT: Atraumatic, normocephalic. The pupils are equal and round . Left-sided facial asymmetry Neck: Supple with full range of motion. Chest: Normal expansion of the thorax during inspiration Lungs: Clear to auscultation bilaterally Heart: Normal S1-S2, Regular rhythm and rate. Abdomen: Soft , nontender, nondistended , bowel sounds are present. Extremities: Normal to inspection, no edema no cyanosis Neurologic: Normal mental status,The patient is awake, alert and oriented . Results Result Diagram: 08/31/16 1014 08/31/16 0708 Results 24 hrs Laboratory Tests Test 08/30/16 17:06 08/30/16 21:38 08/31/16 07:08 08/31/16 07:46 Bedside Glucose 126 137 202 Anion Gap 18 H Blood Urea Nitrogen 11 Calcium Level 9.7 Carbon Dioxide Level 33 H Chloride Level 96 L Cholesterol Level 133 Cholesterol/HDL Ratio 4.9 Creatinine 0.87 Glucose Level 200 # HDL Cholesterol 27 L LDL Cholesterol, Calculated 63 Magnesium Level 1.9 Potassium Level 3.6 Sodium Level 143 Thyroid Stimulating Hormone (TSH) 0.500 Triglycerides Level 213 H Test 08/31/16 10:14 08/31/16 12:16 Basophils # 0.1 Basophils % 0.6 Eosinophils # 0.1 Eosinophils % 0.6 Hematocrit 44.2 Hemoglobin 15.2 Lymphocytes # 1.9 Lymphocytes % 23.0 Mean Corpuscular Hemoglobin 31.3 Mean Corpuscular Hemoglobin Concent 34.4 Mean Corpuscular Volume 91.1 Mean Platelet Volume 10.1 Monocytes # 0.6 Monocytes % 6.7 Neutrophils # 5.6 Neutrophils % 68.40 Nucleated Red Blood Cells # 0.0 Nucleated Red Blood Cells % 0.0 Platelet Count 261 Red Blood Count 4.85 Red Cell Distribution Width 12.7 White Blood Count 8.2 # Bedside Glucose 227 H Medications Medications Current Medications Gabapentin (Neurontin) 100 mg TID PO Last administered on 08/31/16t 12:38; Admin Dose 100 MG; Start 08/30/16 at 13:00 Miscellaneous Information 1 ea NOTE XX ; Start 08/30/16 at 13:00 Glucose (Glutose) 15 gm Q15M PRN PO DECREASED GLUCOSE; Start 08/30/16 at 13:00 Glucose (Glutose) 22.5 gm Q15M PRN PO DECREASED GLUCOSE; Start 08/30/16 at 13: 00 Dextrose (D50w Syringe) 25 ml Q15M PRN IV DECREASED GLUCOSE; Start 08/30/16 at 13:00 Dextrose (D50w Syringe) 50 ml Q15M PRN IV DECREASED GLUCOSE; Start 08/30/16 at 13:00 Glucagon (Glucagen) 1 mg Q15M PRN IM DECREASED GLUCOSE; Start 08/30/16 at 13:00 Glucose (Glutose) 15 gm Q15M PRN BUCCAL DECREASED GLUCOSE; Start 08/30/16 at 13 :00 Metformin HCl (Glucophage) 1,000 mg BID PO Last administered on 08/31/16 08:54 ; Admin Dose 1,000 MG; Start 08/30/16 at 21:00 Ondansetron HCl (Zofran Tab) 4 mg Q6H PRN PO NAUSEA AND/OR VOMITING; Start at 13:00 Aspirin (Aspirin) 81 mg DAILY PO Last administered on 08/31/16 08:55; Admin Dose 81 MG; Start 08/31/16 at 09:00 Acetaminophen (Tylenol Tab) 650 mg Q6H PRN PO PAIN LEVEL 1-3 OR FEVER Last administered on 08/31/16 08:55; Admin Dose 650 MG; Start 08/30/16 at 13:00 Docusate Sodium (Colace) 100 mg Q12H PRN PO CONSTIPATION; Start 08/30/16 at 13: 00 Enoxaparin Sodium (Lovenox) 40 mg DAILY SC ; Start 08/31/16 at 09:00 Doxazosin Mesylate (Cardura) 8 mg HS PO ; Start 08/31/16 at 21:00 Linagliptin (Tradjenta) 5 mg DAILY PO Last administered on 08/31/16 09:51; Admin Dose 5 MG; Start 08/31/16 at 10:00 Spironolactone (Aldactone) 25 mg DAILY PO Last administered on 08/31/16 14:36 ; Admin Dose 25 MG; Start 08/31/16 at 14:00 Lisinopril (Zestril) 40 mg DAILY PO ; Start 09/01/16 at 09:00 Hydralazine HCl (Apresoline) 10 mg Q4H PRN IV ELEVATED BLOOD PRESSURE; Start at 14:30 RICK AN MD Aug 31, 2016 15:37
[2016-08-31] MEDS ORDERED: LEVOFLOXACIN 500 MG TAB PO ONE (16:00)
[2016-08-31] MEDS ORDERED: GUAIFENESIN/DM 5ML CUP PO PRN (16:00)
[2016-08-31] MEDS: hydrALAzine 20 MG INJ IV PRN (20:50)
[2016-08-31] MEDS ORDERED: DOXAZOSIN 4 MG TAB PO SCH ×2 (21:00)
[2016-09-01] VITALS (10 sets, daily range): BP systolic 159–192; BP diastolic 72–93; PULSE 57–80; RESP 17–20
[2016-09-01] MEDS: ACETAMINOPHEN 325 MG TAB PO PRN (04:20)
[2016-09-01] MEDS ORDERED: LEVOFLOXACIN 500 MG TAB PO SCH (06:00)
--- NOTE | 2016-09-01 07:50 | CONS ---
DATE OF ADMISSION: 08/30/2016 DATE OF CONSULTATION: 08/31/2016 REASON FOR CONSULTATION: Abnormal electrocardiogram, assess for acute coronary syndrome. REQUESTING PHYSICIAN: Dr. An from the hospitalist service. HISTORY OF PRESENT ILLNESS: Mr. 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 The niki ent was therefore sent to the emergency department. Upon arrival, temperature of 98.6, blood pressu re 152/80, pulse 72, respiratory rate 20, saturating 98%. The patient's labs revealed white count 6 .3, hemoglobin 14.5, platelet count 218. Sodium 138, potassium 3.3, creatinine 0.8, BUN 12. Tropon in negative. Hemoglobin A1c of 10.7, INR of 1.0. The patient underwent a carotid Doppler revealing no significant stenosis of the right internal carotid or left internal carotid artery. The patient additionally underwent a brain MRI revealing no evidence of acute intracranial pathology, small are a of left frontal encephalomalacia likely post-traumatic, a chest x-ray revealing no acute cardiopul monary abnormalities, and a head CT revealing no evidence of intracranial mass, hemorrhage, or midli ne shift. Mild nonspecific chronic microvascular skin changes, mild bilateral ethmoid sinus disease . The patient's electrocardiogram with normal sinus rhythm, rate of 60, normal axis, normal interva ls with lateral T-wave inversions. Patient subsequently has been admitted to the floor and since ad mitted to floor has been noted to have uncontrolled systolic blood pressure in the 170s. Patient echeverria s had 1 negative troponin. Additionally, the patient was consulted on by the endocrinology service due to a significantly elevated hemoglobin A1c. PAST MEDICAL HISTORY: As above in HPI. MEDICATIONS CURRENTLY IN HOSPITAL: 1. Zestril 40 mg daily. 2. Levofloxacin 5 mg daily. 3. Cardura 8 mg at bedtime. 4. ____ daily. 5. Tradjenta 5 mg daily. 6. Aspirin 81 mg daily. 7. ____ subcutaneous daily. 8. Metformin 1000 mg b.i.d. 9. Insulin sliding scale. 10. Tylenol p.r.n. 11. Colace p.r.n. ALLERGIES: NO KNOWN DRUG ALLERGIES. SOCIAL HISTORY: No tobacco, ETOH or illicit drug use. FAMILY HISTORY: No history of sudden cardiac or early CAD. REVIEW OF SYSTEMS: As above in HPI. CONSTITUTIONAL: No fevers, chills. PULMONARY: No current shortness of breath. CARDIOVASCULAR: No current chest pain. GASTROINTESTINAL: No vomiting. GENITOURINARY: No hematuria. MUSCULOSKELETAL: Degenerative joint disease. PSYCHIATRIC: No documented psych history. NEUROLOGIC: No documented history of CVA. PHYSICAL EXAMINATION VITAL SIGNS: Temperature of 99.3, blood pressure markedly elevated at 171/93, pulse 67, respiratory rate ____, 100%. GENERAL: The patient is alert, awake, complaining of dizziness, lightheadedness. NECK: JVP approximately 8 cm of water. CHEST: Fair movement throughout with mildly decreased breath sounds at bases bilaterally. HEART: Regular rate and rhythm. S1, S2, I/ systolic murmur, nondisplaced PMI. ABDOMEN: Positive bowel sounds, soft. EXTREMITIES: No pitting edema, 1+ pulses bilaterally, posterior tibial. LABORATORIES: As above in HPI, with most recent from today, sodium 143, potassium 3.6, creatinine 0 .87, BUN 11, LDL 63, HDL 27. TSH 0.5. White 5.2, hemoglobin 15.2, platelet count 261. IMAGING STUDIES: As above in HPI. No further imaging studies for my review at this time. ECG: As above in HPI. No further electrocardiograms for my review at this time. IMPRESSION: 1. Abnormal electrocardiogram, assess for acute coronary syndrome. 2. Hypertension, uncontrolled currently, but this is after decrease of baseline ____. It is thought there may be polypharmacy associated with the patient's dizziness. 3. Diastolic dysfunction by most recent echo 08/30/2016. 4. Hypokalemia, mild. 5. History of prior cerebrovascular accident. 6. Dizziness, rule out cardiac etiology. RECOMMENDATIONS: 1. At this time, would maintain the patient on telemetry monitoring to follow rhythm and rate contr ol closely. 2. Patient has been continued on ECTOR inhibitor and initiated on Aldactone for the possibility of hy peraldosteronism and had Cardura increased and therefore will follow up on blood pressures on these increased doses prior to further titrating medications, though would be cautious with furthering Car dura as it may worsening orthostasis and possible worsening dizziness. 3. Continue the patient's aspirin prophylaxis against cardiovascular events. Additionally follow u p the patient's ____ levels, possible evaluation of hyperaldosteronism, already ordered by endocrino logy. 4. Follow the patient's blood sugars closely and would check orthostatics to ensure that orthostasi s in this setting of alpha 1 blockade is not the etiology of the patient's dizziness. Thank you for allowing me to take part in the care of this patient. I will continue to follow along very closely with you. Further recommendations will be made as the patient progresses through his inpatient hospital clinical course. Dictated By: JUAN LUIS PAREDES/NABIL Conf#: [id number] DID#: [id number] CC: RICK AN MD;*EndCC*
[2016-09-01] MEDS: ENOXAPARIN 40 MG/0.4 ML SYG SC SCH (08:09)
[2016-09-01] MEDS: ASPIRIN 81 MG TAB PO SCH (08:11)
[2016-09-01] MEDS: LINAGLIPTIN 5 MG TABLET PO SCH (08:11)
[2016-09-01] MEDS: GABAPENTIN 100 MG CAP PO SCH ×2 (08:11→12:32)
[2016-09-01] MEDS: SPIRONOLACTONE 25 MG TAB PO SCH (08:11)
[2016-09-01] MEDS: metFORMIN 500 MG TAB PO SCH (08:11)
[2016-09-01] MEDS: INSULIN ASPART [NOVOLOG] 3 ML PEN SC SCH ×2 (08:19→12:38)
[2016-09-01 08:25] LABS: POTASSIUM 3.6 mmol/L (3.5-5.1)
[2016-09-01 08:28] LABS: CREATININE 0.89 mg/dl (0.61-1.24)
[2016-09-01 08:29] LABS: CALCIUM 9.8 mg/dl (8.4-10.2)
[2016-09-01] MEDS ORDERED: LISINOPRIL 20 MG TAB PO SCH ×2 (09:00→21:00)
[2016-09-01 09:30] LABS: CHOL/HDL RATIO 4.4 RATIO
[2016-09-01] MEDS: hydrALAzine 20 MG INJ IV PRN (12:32)
--- NOTE | 2016-09-01 13:59 | CONS ---
Date/Time of Note Date/Time of Note DATE: 09/01/16 TIME: 13:56 Assessment/Plan Assessment/Plan Additional Assessment/Plan IMPRESSION: 1. Abnormal electrocardiogram, assess for acute coronary syndrome. r/o HI - doubt active ischemia. 2. Hypertension - labile - much better now. It is thought there may be polypharmacy associated with the patient's dizziness. 3. Diastolic dysfunction by most recent echo 08/30/2016. 4. Hypokalemia, mild. 5. History of prior cerebrovascular accident- no new changes now. 6. Dizziness, no clear identifiable cardiac etiology. 7. CAD - nonobstructive coronary artery disease by catheterization in 2009 - no evidence of ischemia now. Consultation Date/Type/Reason Admit Date/Time Aug 30, 2016 at 10:42 Initial Consult Date 08/31/16 Type of Consultation: Endocrinology Referring Provider: RICK AN MD 24 HR Interval Summary Free Text/Dictation NO acute change - better BP, No tachy-jay sx noted. ROS: No fever, no chills, no nausea, no vomiting, no diarrhea/constipation No recent weight changes No chest pain, no PND, no orthopnea No dizziness, blurred vision (better) No thirst, no heat or cold intolerance Exam/Review of Systems Vital Signs Vitals Vital Signs Date Time Temp Pulse Resp B/P Pulse Ox O2 Delivery O2 Flow Rate FiO2 09/01/16 13:05 164/77 09/01/16 12:43 57 09/01/16 12:10 98.2 18 96 Room Air Intake and Output 08/31/16 08/31/16 09/01/16 15:00 23:00 07:00 Intake Total 1000 ml Balance 1000 ml Exam General: WN/WD/NAD, AOx 2-3 slurred speach HEENT: Unicetric/atraumatic/EOMI (ollow commands) NECK: JVD elevated, no thyromegaly Lymph: no lymphadenopathy HEART: regular with no S3, II/ systolic murmur at apex LUNGS: Coarse sounds ABD: soft, NT, ND, +BS : Intact Neuro: h/o CVA SKIN: chronic changes EXT: trace edema Results Result Diagram: 08/31/16 1014 09/01/16 0730 Results 24 hrs Laboratory Tests Test 08/31/16 16:34 08/31/16 20:31 09/01/16 00:58 09/01/16 07:23 Bedside Glucose 178 168 165 Troponin I < 0.010 Test 09/01/16 07:30 09/01/16 07:40 09/01/16 11:52 09/01/16 12:05 Anion Gap 20 H Blood Urea Nitrogen 11 Calcium Level 9.8 Carbon Dioxide Level 28 Chloride Level 97 Creatinine 0.89 Glucose Level 162 Potassium Level 3.6 Sodium Level 141 Cholesterol Level 152 Cholesterol/HDL Ratio 4.4 HDL Cholesterol 34 LDL Cholesterol, Calculated 94 Triglycerides Level 122 Troponin I < 0.012 < 0.010 Bedside Glucose 208 Medications Medications Current Medications Gabapentin (Neurontin) 100 mg TID PO Last administered on 09/01/16 12:32; Admin Dose 100 MG; Start 08/30/16 at 13:00 Miscellaneous Information 1 ea NOTE XX ; Start 08/30/16 at 13:00 Glucose (Glutose) 15 gm Q15M PRN PO DECREASED GLUCOSE; Start 08/30/16 at 13:00 Glucose (Glutose) 22.5 gm Q15M PRN PO DECREASED GLUCOSE; Start 08/30/16 at 13: 00 Dextrose (D50w Syringe) 25 ml Q15M PRN IV DECREASED GLUCOSE; Start 08/30/16 at 13:00 Dextrose (D50w Syringe) 50 ml Q15M PRN IV DECREASED GLUCOSE; Start 08/30/16 at 13:00 Glucagon (Glucagen) 1 mg Q15M PRN IM DECREASED GLUCOSE; Start 08/30/16 at 13:00 Glucose (Glutose) 15 gm Q15M PRN BUCCAL DECREASED GLUCOSE; Start 08/30/16 at 13 :00 Metformin HCl (Glucophage) 1,000 mg BID PO Last administered on 09/01/16 08:11 ; Admin Dose 1,000 MG; Start 08/30/16 at 21:00 Ondansetron HCl (Zofran Tab) 4 mg Q6H PRN PO NAUSEA AND/OR VOMITING; Start at 13:00 Aspirin (Aspirin) 81 mg DAILY PO Last administered on 09/01/16 08:11; Admin Dose 81 MG; Start 08/31/16 at 09:00 Acetaminophen (Tylenol Tab) 650 mg Q6H PRN PO PAIN LEVEL 1-3 OR FEVER Last administered on 09/01/16 04:20; Admin Dose 650 MG; Start 08/30/16 at 13:00 Docusate Sodium (Colace) 100 mg Q12H PRN PO CONSTIPATION; Start 08/30/16 at 13: 00 Enoxaparin Sodium (Lovenox) 40 mg DAILY SC ; Start 08/31/16 at 09:00 Doxazosin Mesylate (Cardura) 8 mg HS PO Last administered on 08/31/16 20:49; Admin Dose 8 MG; Start 08/31/16 at 21:00 Linagliptin (Tradjenta) 5 mg DAILY PO Last administered on 09/01/16 08:11; Admin Dose 5 MG; Start 08/31/16 at 10:00 Spironolactone (Aldactone) 25 mg DAILY PO Last administered on 09/01/16 08:11 ; Admin Dose 25 MG; Start 08/31/16 at 14:00 Lisinopril (Zestril) 40 mg DAILY PO Last administered on 09/01/16 08:14; Admin Dose 40 MG; Start 09/01/16 at 09:00 Hydralazine HCl (Apresoline) 10 mg Q4H PRN IV ELEVATED BLOOD PRESSURE Last administered on 09/01/16 12:32; Admin Dose 10 MG; Start 08/31/16 at 14:30 Levofloxacin (Levaquin) 500 mg DAILY@06 PO Last administered on 09/01/16 05:54 ; Admin Dose 500 MG; Start 09/01/16 at 06:00 Guaifenesin/ Dextromethorphan (Robitussin Dm Liquid Cup) 5 ml Q4H PRN PO COUGH Last administered on 08/31/16 23:17; Admin Dose 5 ML; Start 08/31/16 at 16:00 BEATRIZ HUGHES MD Sep 01, 2016 13:58
--- NOTE | 2016-09-01 14:58 | PDOCDIS ---
Discharge Instructions CONDITION Patient Condition: Good HOME CARE INSTRUCTIONS: Special Diet: Carb controlled/ low salt ACTIVITY: Activity Restrictions: Slowly Increase Activity Rest between Activity Avoid heavy lifting FOLLOW UP/APPOINTMENTS Appointments follow up with PCP and cardiology as out-pt RICK AN MD Sep 01, 2016 14:58
[2016-09-01] MEDS ORDERED: METF500T PO (14:59)
[2016-09-01] MEDS ORDERED: SPIR25TA PO (14:59)
[2016-09-01] MEDS ORDERED: ASPI81TA3 PO (14:59)
--- NOTE | 2016-09-01 16:18 | DS ---
DATE OF ADMISSION: 08/30/2016 DATE OF DISCHARGE: 09/01/2016 CONSULTANTS: 1. Dr. Prince Keen. 2. DAVID GARCES MD. 3. Dr. Karlos Ramon. DISCHARGE DIAGNOSES 1. Lightheadedness and dizziness with history of cerebrovascular accident, no evidence of acute cer ebrovascular accident on MRI of the brain. 2. Essential hypertension, well controlled. 3. Diabetes mellitus. Continue metformin and Onglyza. 4. History of cerebrovascular accident. The patient has been placed on aspirin. Lipid panel was w ithin normal limits. 5. Upper respiratory tract infection, status post antibiotics. Patient is afebrile. 6. Obstructive sleep apnea, chronic. Refuses to wear a CPAP mask. 7. Diastolic dysfunction. Cardiology was consulted. 8. Morbid obesity. Diet and exercise was recommended. MEDICATIONS: 1. Aspirin 81 mg. 2. Metformin 1000 mg 3. Aldactone 25 mg 4. Clonidine 0.2 mg. 5. Cardura 4 mg 6. Gabapentin 100 mg 7. Nifedipine 60 mg. 8. Onglyza 5 mg. 9. Valsartan 325 mg. ALLERGIES: NO KNOWN DRUG ALLERGIES. HOSPITAL COURSE: This is a 56-year-old gentleman with past medical history of CVA in 2008, hyperten russ, diabetes mellitus, dyslipidemia, cerebrovascular accident with left-sided residual. He was se en and evaluated by his primary care physician, Dr. Turpin on 09/04/2016. He has been having cough a nd congestion did complain of having lightheadedness and dizziness. Patient was sent to [facility] Emergency Room to rule out CVA. CT of the brain and MRI of the brain was obtained. Neurol ogy was consulted. The CT of the brain did not show any acute finding, no evidence of intracranial mass, hemorrhage or midline shift. Mild nonspecific chronic microvascular ischemic changes, mild bi lateral ethmoid sinus disease and MRI of the brain. The patient showed no evidence of acute intracr anial pathology. Small area in the left frontal encephalomalacia likely post-traumatic, mild to mod erate volume loss. Patient was seen and evaluated by the purchasing assistant secondary to having uncont rolled diabetes mellitus with hemoglobin A1c of 10.7, although patient has been refusing insulin. Rigo patrick was seen and evaluated by his factory assembler, Dr. Ramon during this course of hospitalization . His blood pressure medication was readjusted although at this time he refused this change in his medication and he wants to be placed back on the same medication that he was on before. As per endo crinology's recommendations, the patient may have ____ syndrome and has been placed on spironolacton e, therefore, hydrochlorothiazide was discontinued and the patient was placed Aldactone. Today, the patient's vitals temperature 98.2, pulse 57, respiration rate 18, blood pressure 164/77, oxygen sat uration 96%. Patient will be discharged home in stable condition. His triglyceride 122, total chol esterol 52, LDL 94, HDL 34. Sodium 141, potassium 3.6, chloride 97, bicarbonate 28, BUN 11, creatin ine 0.89, glucose 162. CONDITION AT TIME OF DISCHARGE: Stable. RECOMMENDATION: Follow up with PCP in 1 week. Follow with cardiology as outpatient. Follow in endo crinology as outpatient. DIET: Cardiac, low carbohydrates diet. ACTIVITY: Exercise 30 minutes per day. In case, he is having any chest pain, shortness of breath, or any other discomfort, return to med/surg immediately. Dictated By: RICK AN MD PN/NTS Conf#: [id number] DID#: [id number]
== END 2016-09-01 16:00 | disposition home or self-care (01) | DRG 149 ==
LOC: E/R 10:17 → MS4 10:42
PROVIDERS: ADMIT Family Medicine; ATTEND Family Medicine
DX: R42 Dizziness and giddiness (principal); E11.65 Type 2 diabetes mellitus with hyperglycemia; I10 Essential (primary) hypertension; I69.354 Hemiplegia and hemiparesis following cerebral infarction affecting left non-dominant side; E87.6 Hypokalemia; G47.33 Obstructive sleep apnea (adult) (pediatric); E78.5 Hyperlipidemia, unspecified; J06.9 Acute upper respiratory infection, unspecified; E66.01 Morbid (severe) obesity due to excess calories; Z79.84 Long term (current) use of oral hypoglycemic drugs; Z79.82 Long term (current) use of aspirin; Z87.891 Personal history of nicotine dependence; Z68.36 Body mass index [BMI] 36.0-36.9, adult
CPT/HCPCS: 36415; 70450; 70551; 71010; 80048; 80061; 82088; 82962; 83036; 83735; 84244; 84443; 84484; 85025; 85610; 85730; 92610; 93005; 93306; 93880; 96372; 97163; J0360; J1650; J1815; J7030

== ENCOUNTER 2019-01-24 23:41 | Observation (INO) | payer BC, OTHER ==
[~2019-01-24] VITALS: Ht 172.7 cm; Wt 115.5 kg
[~2019-01-24 23:41] MED LIST changes: +ASPI-831 PO; -ASPI1CPM8 PO; -CLON-379 PO; +CLON0.2T5 PO; -DOXA1TAB38 PO; -ENAL20TA73 PO; +GABA100C14 PO; -GLYB1TAB3 PO; -LOSA100T7 PO; +METF500T PO; -SMV40T PO; +SPIR25TA PO; -TAMS0.4C2 PO; +VALS320T2 PO
[2019-01-25] VITALS (10 sets, daily range): BP systolic 130–172; BP diastolic 63–84; PULSE 55–73; RESP 19–20; Ht 172.7 cm; Wt 115.5 kg
[2019-01-25] MEDS ORDERED: POTASSIUM CHLORIDE (SR) 20 MEQ TAB PO STA (01:33)
--- NOTE | 2019-01-25 01:58 | ERD ---
ER Documentation Chief Complaint Chief Complaint R sided CP x 24 hrs; hx HTN,DM,CVA HPI This is a 58-year-old male with a history of hypertension, diabetes, previous CVA who presents to the emergency room for evaluation of chest pain. The patient states that he had chest pain for the past 24 hours and describes as intermittent chest pain located in the center of his chest described as a pressure-like sensation with no radiation. The patient has not taken any medications for this and came to the ER today for evaluation. ROS All systems reviewed and are negative except as per history of present illness. Medications Home Meds Active Scripts Spironolactone* (Aldactone*) 25 Mg Tablet, 25 MG PO DAILY, #30 TAB Prov:RICK AN MD 09/01/16 Metformin Hcl (Glucophage) 500 Mg Tablet, 1000 MG PO BID, #60 TAB Prov:RICK AN MD 09/01/16 Aspirin (Aspirin) 81 Mg Chew, 81 MG PO DAILY, #30 TAB Prov:RICK AN MD 09/01/16 Reported Medications Valsartan* (Diovan*) 320 Mg Tablet, 320 MG PO DAILY, TAB 08/30/16 Saxagliptin Hcl* (Onglyza*) 5 Mg Tablet, 5 MG PO DAILY, TAB 08/30/16 Gabapentin* (Gabapentin*) 100 Mg Capsule, 100 MG PO TID, #90 CAP 08/30/16 Clonidine Hcl* (Clonidine Hcl*) 0.2 Mg Tablet, 0.2 MG PO Q8, TAB 08/30/16 Nifedipine* (Nifedical XL*) 60 Mg/Bottle Tab.osm.24, 60 MG PO DAILY 12/01/12 Doxazosin Mesylate* (Cardura*) 4 Mg Tablet, 4 MG PO DAILY 12/01/12 Allergies Allergies: Coded Allergies: No Known Drug Allergy (Verified Allergy, Unknown, 08/30/16) PMhx/Soc History of Surgery: Yes Anesthesia Reaction: No Hx Neurological Disorder: Yes (STROKE) Hx Respiratory Disorders: No (SLEEP APNEA) Hx Cardiac Disorders: Yes (HTN) Hx Psychiatric Problems: No Hx Miscellaneous Medical Probl: Yes (CVA in 2008 with L side weakness, HTN, DM, obesity. ) Hx Alcohol Use: No Hx Substance Use: No Hx Tobacco Use: No Smoking Status: Never smoker Physical Exam Vitals Vital Signs Date Temp Pulse Resp B/P (MAP) Pulse Ox O2 O2 Flow FiO2 Time Delivery Rate 01/25/19 97.7 54 18 154/63 98 Room Air 00:51 (93) 01/25/19 97.7 54 18 148/70 98 00:05 (96) Physical Exam INITIAL VITAL SIGNS: Reviewed by me GENERAL: The patient is well developed and appropriate for usual state of health in no apparent distress HEENT: Pupils equal, round, and reactive to light. EOMI. There is no scleral icterus. NECK: C-spine is soft and supple, there is no meningismus. There is no cervical lymphadenopathy. LUNGS: Clear to auscultation bilaterally. There are no rales, wheezes or rhonchi. HEART: Regular rate and rhythm, no murmurs, clicks, rubs or gallops. ABDOMEN: Soft, non-tender, non-distended. There are bowel sounds in all four quadrants. No rebound or guarding. EXTREMITIES: There is no peripheral cyanosis or edema. No focal swelling or erythema. NEUROLOGICAL: Mild slurred speech, otherwise the patient moves all four extremities with 5/5 strength. Cranial nerves II - XII are intact. Normal gait. Alert and oriented SKIN: There is no apparent rash or petechiae. HEME/LYMPHATIC: There is no evidence of excessive bruising or lymphedema. PSYCHIATRIC: The patient does not appear anxious or depressed. Result Diagram: 01/25/19 0054 01/25/19 0054 Results 24 hrs Laboratory Tests Test 01/25/19 00:54 White Blood Count 5.9 10^3/ul Red Blood Count 4.80 10^6/ul Hemoglobin 14.4 g/dl Hematocrit 43.1 % Mean Corpuscular Volume 89.8 fl Mean Corpuscular Hemoglobin 30.0 pg Mean Corpuscular Hemoglobin Concent 33.4 g/dl Red Cell Distribution Width 14.0 % Platelet Count 182 10^3/UL Mean Platelet Volume 10.9 fl Immature Granulocytes % 0.200 % Neutrophils % 52.5 % Lymphocytes % 39.0 % Monocytes % 6.3 % Eosinophils % 1.7 % Basophils % 0.3 % Nucleated Red Blood Cells % 0.0 /100WBC Immature Granulocytes # 0.010 10^3/ul Neutrophils # 3.1 10^3/ul Lymphocytes # 2.3 10^3/ul Monocytes # 0.4 10^3/ul Eosinophils # 0.1 10^3/ul Basophils # 0.0 10^3/ul Nucleated Red Blood Cells # 0.0 10^3/ul Sodium Level 140 mmol/L Potassium Level 2.9 mmol/L Chloride Level 98 mmol/L Carbon Dioxide Level 33 mmol/L Anion Gap 9 Blood Urea Nitrogen 20 mg/dl Creatinine 0.99 mg/dl Est Glomerular Filtrat Rate mL/min > 60 mL/min Glucose Level 155 mg/dl Calcium Level 9.1 mg/dl Troponin I 0.013 ng/ml Current Medications Medications Dose Sig/Nadine Start Time Status Last (Trade) Ordered Route PRN Stop Time Admin Dose Reason Admin Potassium 60 meq ONCE STAT 01/25/19 DC Chloride PO 01:33 (Klor-Con 20) 01/25/19 01:34 Magnesium 100 ml @ ONCE ONCE 01/25/19 Sulfate/ 100 mls/hr IVPB 02:00 Dextrose 01/25/19 02:59 Procedures/MDM EKG: Rate/Rhythm: [Normal Sinus Rhythm] QRS, ST, T-waves: [T wave inversions and ST abnormalities in the inferior and lateral leads] Impression: Sinus rhythm with T wave inversions and ST abnormalities in the inferior and lateral leads Chest X-ray 1V Interpreted by me: Soft Tissue: No acute abnormalities Bones: No acute abnormalities Mediastinum/Cardiac Silhouette/Lungs: [No acute abnormalities] This 58-year-old male presents to the ER for evaluation of nonexertional chest pain. On my evaluation the patient did have slurred speech however this was residual from previous stroke. The patient's remainder of his exam is normal with no reproducible chest pain on palpation. His EKG was abnormal however with ST and T wave abnormalities in the inferior and lateral leads. There is no signs of ST elevation. Lab work was obtained and does show hypokalemia with a potassium of 2.9. The patient was supplemented 60 mEq of potassium by mouth, was given 1 g of magnesium IV. Given his age and risk factors he will benefit from inpatient hospitalization for serial troponins. I did contact the admitting physician Dr. Qureshi who is agreeable to plan of care for admission at this time. Departure Diagnosis: Primary Impression: Chest pain Additional Impressions: Hypokalemia History of CVA (cerebrovascular accident) DOMINICK CAMEJO DO Jan 25, 2019 01:58
[2019-01-25] MEDS ORDERED: ACETAMINOPHEN 325 MG TAB PO PRN ×2 (02:00→02:30)
[2019-01-25] MEDS ORDERED: NITROGLYCERIN (SL) 0.4 MG TAB SL ONE (02:00)
[2019-01-25] MEDS ORDERED: MAGNESIUM SULFATE 1 GM/D5W 100 ML IVPB ONE (02:00)
[2019-01-25] MEDS ORDERED: ASPIRIN 81 MG TAB PO ONE (02:00)
[2019-01-25] MEDS ORDERED: ONDANSETRON 4 MG INJ IV PRN (02:00)
[2019-01-25] MEDS ORDERED: NITROGLYCERIN (SL) 0.4 MG TAB SL PRN (02:30)
[2019-01-25] MEDS ORDERED: NACL 0.9% 3 ML SYG IV SCH (02:30)
[2019-01-25] MEDS ORDERED: ONDANSETRON 4 MG TAB PO PRN (02:30)
[2019-01-25] MEDS ORDERED: DOCUSATE SODIUM 100 MG CAP PO PRN (02:30)
[2019-01-25] MEDS ORDERED: hydrALAzine 20 MG INJ IV PRN (04:30)
[2019-01-25] MEDS: NITROGLYCERIN 2% 1 GM OINT PKT TD SCH ×3 (04:43→17:19)
[2019-01-25] MEDS ORDERED: POTASSIUM CHLORIDE (SR) 20 MEQ TAB PO ONE (06:17)
[2019-01-25] MEDS: ACCU-CHEK XX SCH ×3 (07:00→17:19)
[2019-01-25] MEDS: GABAPENTIN 100 MG CAP PO SCH ×2 (08:47→12:30)
[2019-01-25] MEDS ORDERED: ASPIRIN 81 MG TAB PO SCH (09:00)
[2019-01-25] MEDS ORDERED: metFORMIN 500 MG TAB PO SCH (09:00)
[2019-01-25] MEDS ORDERED: NIFEdipine (XL) 60 MG TAB PO SCH (09:00)
[2019-01-25] MEDS ORDERED: LOSARTAN 50 MG TAB PO SCH (09:00)
[2019-01-25] MEDS ORDERED: SPIRONOLACTONE 25 MG TAB PO SCH (09:00)
[2019-01-25] MEDS ORDERED: LINAGLIPTIN 5 MG TABLET PO SCH (09:00)
[2019-01-25] MEDS ORDERED: ENOXAPARIN 40 MG/0.4 ML SYG SC SCH (09:00)
[2019-01-25] MEDS ORDERED: FAMOTIDINE 20 MG TAB PO SCH (09:00)
[2019-01-25] MEDS ORDERED: NON-FORMULARY/PATIENT OWN MED (Valsartan* (Diovan*) 320 MG) PO SCH (09:00)
[2019-01-25] MEDS ORDERED: SAXAGLIPTIN HYDROCHLORIDE 5 MG TAB PO SCH (09:00)
--- NOTE | 2019-01-25 10:52 | HP ---
Date/Time of Note Date/Time of Note DATE: 01/25/19 TIME: 10:50 Assessment/Plan VTE Prophylaxis Risk score (from Nsg)>0 risk: 2 SCD applied (from Nsg): Yes Pharmacological prophylaxis: LMWH Lines/Catheters IV Catheter Type (from Nrsg): Saline Lock Urinary Cath still in place: No Assessment/Plan Assessment/Plan [facility] 1. 58yo man with cardiac risk factors (diabetes, hypertension, hyperlipidemia) who presented last night with 24-hours of punctuated chest pain, but in retrospect it represented worsening of a longstanding right-sided chest discomfort improved by deep breathing. EKG showed normal sinus rhythm, without arrhythmia overnight on telemetry. Possible pericarditis, with positional component. Troponins negative x 2. Chest x-ray showed mild to moderate cardiomegaly without congestive heart failure or infiltrates. EKG showed ST and T-wave abnormalities, without acute ischemic changes. Potassium 2.9 in ER, and again this morning after supplementation. 2. Type 2 diabetes with poor control; A1c 9.2% 3. Sleep apnea 4. Hypertension 5. Diabetic neuropathy * Topical nitropaste to control blood pressure * Aspirin in ER * Dr. Nita Stapleton to consult for cardiology * Will order echocardiography to assess for previous silent PR, pericardial effusion * Continue current blood pressure medications, including spironolactone (was not taking) * Potassium supplementation as needed * Enoxaparin 40mg SQ for DVT prophylaxis * Accuchecks * Will start Lantus in the evenings for better control; continue outpatient diabetes medications * Famotidine for GI protection * Disposition: anticipate home once diagnostic evaluation is complete Mandy Qureshi MD PhD [phone] Result Diagram: 01/25/19 0054 01/25/19 0434 Results 24hrs Laboratory Tests Test 01/25/19 00:54 01/25/19 04:34 01/25/19 04:51 01/25/19 07:45 White Blood Count 5.9 # Red Blood Count 4.80 Hemoglobin 14.4 Hematocrit 43.1 Mean Corpuscular 89.8 Volume Mean Corpuscular 30.0 Hemoglobin Mean Corpuscular 33.4 Hemoglobin Concent Red Cell 14.0 Distribution Width Platelet Count 182 # Mean Platelet Volume 10.9 H Immature 0.200 Granulocytes % Neutrophils % 52.5 Lymphocytes % 39.0 Monocytes % 6.3 Eosinophils % 1.7 Basophils % 0.3 Nucleated Red Blood 0.0 Cells % Immature 0.010 Granulocytes # Neutrophils # 3.1 Lymphocytes # 2.3 Monocytes # 0.4 Eosinophils # 0.1 Basophils # 0.0 Nucleated Red Blood 0.0 Cells # Sodium Level 140 142 Potassium Level 2.9 *L 2.9 *L Chloride Level 98 99 Carbon Dioxide Level 33 H 35 H Anion Gap 9 8 Blood Urea Nitrogen 20 19 Creatinine 0.99 1.01 Est Glomerular > 60 > 60 Filtrat Rate mL/min Glucose Level 155 145 Calcium Level 9.1 9.3 Troponin I 0.013 < 0.012 < 0.012 Erythrocyte 23.0 H Sedimentation Rate D-Dimer 346.61 D-Dimer Comment Hemoglobin A1c 9.2 H Magnesium Level 1.9 Creatine Kinase 144 133 Creatine Kinase 0.7 0.6 Index Creatinine Kinase MB 1.00 0.84 (Mass) Thyroid Stimulating 0.836 Hormone (TSH) Bedside Glucose 184 Test 01/25/19 10:02 Creatine Kinase 122 Creatine Kinase Pending Index Creatinine Kinase MB Pending (Mass) Troponin I Pending HPI/ROS Admit Date/Time Admit Date/Time Jan 25, 2019 at 01:55 Hx of Present Illness Mr. Sinclair is a 58-year-old man with a history of hypertension, type 2 diabetes, and previous stroke who presented to the [facility] emergency room with chest pain that began about 24 hours earlier. The pain was right-sided in location, with an aching and intermittent pressure feeling through the day No radiation to face or arm. He has had similar pain off-and-on for years, he said, but it was much worse yesterday. The pain is lessened by deep breathing (not pleuritic) and by standing. Reclining is the most uncomfortable position. No previous cardiac disease history, and a treadmill test two years ago or so was thought to have been normal. He takes no cardiac medications aside from his blood pressure drugs (losartan, Cardura). He has previously been prescribed spironolactone, but said he did not remember taking it. He has a history of stroke in 2001, but is able to walk without a walker and has no difficulty swallowing. No smoking or drinking for many years. He checks sugars at home, and has had his eyes checked for diabetic retinopathy. He has right foot tingling and numbness, for which he takes gabapentin. ROS No headache, visual loss, dysphagia, GERD, nausea, change in bowel habitus, dysuria or urethritis symptoms. No back pain. Does not use a walker at home. PMH/Family/Social Past Medical History Medical History: diabetes, hypertension Medications Current Medications Ondansetron HCl (Zofran Inj) 4 mg ER BRIDGE PRN IV NAUSEA/VOMITING; Start 01/25/19 at 02:00; Stop 01/26/19 at 01:59 Acetaminophen (Tylenol Tab) 650 mg ER BRIDGE PRN PO .MILD PAIN 1-3 OR TEMP; Start 01/25/19 at 02:00; Stop 01/26/19 at 01:59 Aspirin (Aspirin) 81 mg DAILY PO ; Start 01/25/19 at 09:00 Clonidine (Catapres) 0.2 mg Q8 PO Last administered on 01/25/19at 05:51; Admin Dose 0.2 MG; Start 01/25/19 at 06:00 Doxazosin Mesylate (Cardura) 4 mg DAILY@2100 PO ; Start 01/25/19 at 21:00 Gabapentin (Neurontin) 100 mg TID PO Last administered on 01/25/19at 08:47; Admin Dose 100 MG; Start 01/25/19 at 09:00 Metformin HCl (Glucophage) 1,000 mg BID PO Last administered on 01/25/19at 08:47; Admin Dose 1,000 MG; Start 01/25/19 at 09:00 Nifedipine (Procardia Xl) 60 mg DAILY PO Last administered on 01/25/19at 08:47; Admin Dose 60 MG; Start 01/25/19 at 09:00 Spironolactone (Aldactone) 25 mg DAILY PO Last administered on 01/25/19 08:47; Admin Dose 25 MG; Start 01/25/19 at 09:00 Diagnostic Test (Pha) (Accu-Chek) 1 ea AC MEALS AND BEDTIME XX Last administered on 01/25/19at 07:00; Admin Dose 1 EA; Start 01/25/19 at 07:00 Linagliptin (Tradjenta) 5 mg DAILY PO Last administered on 01/25/19 08:47; Admin Dose 5 MG; Start 01/25/19 at 09:00 IV Flush (NS 3 ml) 3 ml PER PROTOCOL IV ; Start 01/25/19 at 02:30 Ondansetron HCl (Zofran Tab) 4 mg Q6H PRN PO NAUSEA/VOMITING; Start 01/25/19 at 02:30 Nitroglycerin (Nitroglycerin (Sl Tab) 0.4 Mg) 1 tab Q5M PRN SL .CHEST PAIN; Start 01/25/19 at 02:30 Acetaminophen (Tylenol Tab) 650 mg Q6H PRN PO .PAIN 1-3 OR TEMP; Start 01/25/19 at 02:30 Docusate Sodium (Colace) 100 mg Q12H PRN PO .CONSTIPATION; Start 01/25/19 at 02:30 Famotidine (Pepcid) 20 mg Q12 PO Last administered on 01/25/19at 08:47; Admin Dose 20 MG; Start 01/25/19 at 09:00 Enoxaparin Sodium (Lovenox) 40 mg DAILY SC Last administered on 01/25/19at 09:21; Admin Dose 40 MG; Start 01/25/19 at 09:00 Losartan Potassium (Cozaar) 100 mg DAILY PO Last administered on 01/25/19at 08:47; Admin Dose 100 MG; Start 01/25/19 at 09:00 Nitroglycerin (Nitroglycerin 2% Oint) 0.5 inch Q6 TD Last administered on 01/25/19at 04:43; Admin Dose 0.5 INCH; Start 01/25/19 at 04:31 Hydralazine HCl (Apresoline) 10 mg Q4H PRN IV ELEVATED BLOOD PRESSURE; Start 01/25/19 at 04:30 Coded Allergies: No Known Drug Allergy (Verified Allergy, Unknown, 08/30/16) Family History Significant Family History: diabetes, hypertension Social History Lives with his sister and daughter. A son is in the [place]. He is originally from [place], where he attended [employer]. 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 No tobacco or alcohol use in more than 20 years. Alcohol Use: none Smoking Status: Former smoker Exam/Review of Systems Vital Signs Vitals Vital Signs Date Temp Pulse Resp B/P (MAP) Pulse Ox O2 O2 Flow FiO2 Time Delivery Rate 01/25/19 97.7 57 19 154/82 91 07:05 (106) 01/25/19 Room Air 02:35 Intake and Output 01/24/19 01/24/19 01/25/19 1515:00 23:00 07:00 IntakeIntake Total 120 ml BalanceBalance 120 ml Exam Exam Gen: Friendly, comfortable breathing on room air CVS: Reg rhythm, normal rate, no murmur, no peripheral edema, no JVD Chest: Clear bilaterally, no chest wall tenderness, good expansion Abd: Large, normal bowel sounds, no rebound or guarding, no HSM MSk: No arthritis Neuro: Alert, oriented, CN intact. Motor 5/5 bilaterally. Toes downgoing. 1+ symmetric patellar DTR Skin: Intact ISHA QURESHI M.D. Jan 25, 2019 10:52
--- NOTE | 2019-01-25 14:26 | RADRPT ---
Echocardiogram Report Patient Name: CARISA KOENIGPatient ID: [id number] : 1960 (58y 11m)Study Date: 01/25/2019 12:47:56 PM Gender: Lisacession #: [id number] Tech: LISA Location: [facility] Ref.Physician: ISHA MEDINA Height(Cm): 173 BSA: 2.35Weight(Kg): 115.2 Quality: AdequateOrder Physician: ISHA MEDINA Account #: Procedures: Echocardiographic Report: Transthoracic echocardiogram with complete 2D, M-Mode, and Doppler examination, difficult subcostal images. Indications: Chest Pain. Measurements: 2D/M Mode Doppler Measurement Value Normal Range Measurement Value Normal Range LA Volume 73.4 [ 18.0 - 58.0 ] ml AV Peak Elliot 1.4 [ 100.0 - 170.0 ] c m/sec LA Volume Index 33 [ 16 - 34 ] ml/m2 AV Peak PG 8.0 [ 2.0 - 9.0 ] mmHg LVIDd 2D 5.4 [ 4.2 - 5.8 ] cm LVOT Peak Elliot 1.3 [ 70.0 - 110.0 ] cm /sec LVIDs 2D 3.8 [ 2.5 - 4.0 ] cm LVOT Peak PG 6.0 [ 2.0 - 6.0 ] mmHg LVPWd 2D 1.3 [ 0.6 - 1.0 ] cm MV E Peak Elliot 0.8 [ 60.0 - 130.0 ] cm /sec IVSd 2D 1.5 [ 0.6 - 1.0 ] cm MV A Peak Elliot 0.9 [ 100.0 - 120.0 ] c m/sec EF 2D 57.1 [ 52.0 - 72.0 ] percent MV E/A 0.9 [ 0.8 - 1.5 ] ratio LA Dimen 2D 4.0 [ 3.0 - 4.0 ] cm MV PHT 79.0 [ 20.0 - 100.0 ] ms ec MV Decel Time 269 [ 104 - 258 ] msec MV Decel Sebastian 3 Lat E` Elliot 0.0 [ 10.0 - 15.0 ] cm/ sec Lateral E/E` 16.6 [ 1.0 - 2.0 ] ratio Med E` Elliot 0.0 cm/sec MV E/A 0.9 [ 0.8 - 1.5 ] ratio MVA PHT 2.8 [ 2.0 - 4.0 ] cm2 PV Peak Elliot 0.9 [ 40.0 - 80.0 ] cm/ sec PV Peak PG 3.0 mmHg Findings: Left Ventricle: Normal left ventricular systolic function. Normal left ventricular cavity size. Moderate concentric left ventricular hypertrophy. Ejection fraction is visually estimated at 64 %. Tissue Doppler/Mitral Doppler indices are consistent with impaired relaxation (Stage I diastolic dysfunction). E/E'= 17. No left ventricular outflow tract gradient at rest. Right Ventricle: Normal right ventricular size. Normal right ventricular systolic function. Left Atrium: There is mild enlargement of left atrium. LA Volume Index= 33. Right Atrium: The right atrium is normal in size. Atrial Septum: Normal atrial septum. Mitral Valve: Normal appearance and function of the mitral valve with trace physiologic regurgitation. Aortic Valve: No significant aortic stenosis or insufficiency. Normal trileaflet aortic valve structure. Tricuspid Valve: Normal appearance and function of the tricuspid valve with trace physiologic regurgitation. Pulmonic Valve: Normal pulmonic valve appearance. There is trace pulmonic regurgitation. Pericardium: Normal pericardium with no significant pericardial effusion. Aorta: Sinus of valsalva is mildly dilated. Sinus of valsalva 3.80 cm. IVC: Normal size and normal respiratory collapse consistent with normal right atrial pressure. Pulmonary Artery: Normal pulmonary artery size. Conclusions: Moderate concentric left ventricular hypertrophy with normal systolic function. Grade 1 diastolic dysfunction. Mild left atrial enlargement. Trace valvular regurgitations. Mildly dilated ascending aorta at the level of the sinuses. Electronically Signed By: Nita Stapleton 2019-01-25 14:25:55 PDT
--- NOTE | 2019-01-25 16:01 | CONS ---
Assessment/Plan Assessment/Plan Hospital Course (Demo Recall) Impression: Atypical noncardiac chest pain, most likely musculoskeletal Diabetes, not controlled Hypertension, not ideally controlled Hypokalemia H/o CVA Recommendations: Replete K No need for ischemic workup given atypical pain, no wall motion abnormalities on echo Given h/o CVA and diabetes he should be on a statin, will start atorva 80, and lipid panel ordered Consultation Date/Type/Reason Admit Date/Time Jan 25, 2019 at 01:55 Date of Consultation: Jan 25, 2019 Type of Consult Cardiology Reason for Consultation chest pain Requesting Provider: ISHA MEDINA M.D. Date/Time of Note DATE: 01/25/19 TIME: 15:56 Hx of Present Illness 58 yo with h/o CVA, hypertension, DM, presents with right sided intermittent lower chest pain, for two days, worse with lying flat. Pain reproduced on palpation. Patient denies recent injury. He also has been more sleepy. He lives with his sister who prepares meals for him. He states he's able to walk 5 miles a day for exercise. Follows with Dr. Turpin, last saw him a month ago. Constitutional: no complaints Eyes: no complaints ENT: no complaints Respiratory: no complaints Cardiovascular: chest pain Gastrointestinal: no complaints Genitourinary: no complaints Musculoskeletal: no complaints Skin: no complaints Neurologic: no complaints, other (sleepiness) Endocrine: no complaints Lymphatic: no complaints Psychological: no complaints Immunologic: no complaints Past Medical History Medical History: diabetes, hypertension, other (CVA) Home Meds Active Scripts Spironolactone* (Aldactone*) 25 Mg Tablet, 25 MG PO DAILY, #30 TAB Prov:RICK AN MD 09/01/16 Metformin Hcl (Glucophage) 500 Mg Tablet, 1000 MG PO BID, #60 TAB Prov:RICK AN MD 09/01/16 Aspirin (Aspirin) 81 Mg Chew, 81 MG PO DAILY, #30 TAB Prov:RICK AN MD 09/01/16 Reported Medications Valsartan* (Diovan*) 320 Mg Tablet, 320 MG PO DAILY, TAB 08/30/16 Saxagliptin Hcl* (Onglyza*) 5 Mg Tablet, 5 MG PO DAILY, TAB 08/30/16 Gabapentin* (Gabapentin*) 100 Mg Capsule, 100 MG PO TID, #90 CAP 08/30/16 Clonidine Hcl* (Clonidine Hcl*) 0.2 Mg Tablet, 0.2 MG PO Q8, TAB 08/30/16 Nifedipine* (Nifedical XL*) 60 Mg/Bottle Tab.osm.24, 60 MG PO DAILY 12/01/12 Doxazosin Mesylate* (Cardura*) 4 Mg Tablet, 4 MG PO DAILY 12/01/12 Medications Current Medications Aspirin (Aspirin) 81 mg DAILY PO ; Start 01/25/19 at 09:00 Clonidine (Catapres) 0.2 mg Q8 PO Last administered on 01/25/19at 14:50; Admin Dose 0.2 MG; Start 01/25/19 at 06:00 Doxazosin Mesylate (Cardura) 4 mg DAILY@2100 PO ; Start 01/25/19 at 21:00 Gabapentin (Neurontin) 100 mg TID PO Last administered on 01/25/19at 12:30; Admin Dose 100 MG; Start 01/25/19 at 09:00 Metformin HCl (Glucophage) 1,000 mg BID PO Last administered on 01/25/19 08:47; Admin Dose 1,000 MG; Start 01/25/19 at 09:00 Nifedipine (Procardia Xl) 60 mg DAILY PO Last administered on 01/25/19 08:47; Admin Dose 60 MG; Start 01/25/19 at 09:00 Spironolactone (Aldactone) 25 mg DAILY PO Last administered on 01/25/19 08:47; Admin Dose 25 MG; Start 01/25/19 at 09:00 Diagnostic Test (Pha) (Accu-Chek) 1 ea AC MEALS AND BEDTIME XX Last administered on 01/25/19at 11:31; Admin Dose 1 EA; Start 01/25/19 at 07:00 Linagliptin (Tradjenta) 5 mg DAILY PO Last administered on 01/25/19 08:47; Admin Dose 5 MG; Start 01/25/19 at 09:00 IV Flush (NS 3 ml) 3 ml PER PROTOCOL IV ; Start 01/25/19 at 02:30 Ondansetron HCl (Zofran Tab) 4 mg Q6H PRN PO NAUSEA/VOMITING; Start 01/25/19 at 02:30 Nitroglycerin (Nitroglycerin (Sl Tab) 0.4 Mg) 1 tab Q5M PRN SL .CHEST PAIN; Start 01/25/19 at 02:30 Acetaminophen (Tylenol Tab) 650 mg Q6H PRN PO .PAIN 1-3 OR TEMP; Start 01/25/19 at 02:30 Docusate Sodium (Colace) 100 mg Q12H PRN PO .CONSTIPATION; Start 01/25/19 at 02:30 Famotidine (Pepcid) 20 mg Q12 PO Last administered on 01/25/19at 08:47; Admin Dose 20 MG; Start 01/25/19 at 09:00 Enoxaparin Sodium (Lovenox) 40 mg DAILY SC Last administered on 01/25/19at 09:21; Admin Dose 40 MG; Start 01/25/19 at 09:00 Losartan Potassium (Cozaar) 100 mg DAILY PO Last administered on 01/25/19at 08:47; Admin Dose 100 MG; Start 01/25/19 at 09:00 Nitroglycerin (Nitroglycerin 2% Oint) 0.5 inch Q6 TD Last administered on 01/25/19at 12:31; Admin Dose 0.5 INCH; Start 01/25/19 at 04:31 Hydralazine HCl (Apresoline) 10 mg Q4H PRN IV ELEVATED BLOOD PRESSURE; Start 01/25/19 at 04:30 Insulin Glargine (Lantus) 12 units DAILY@2000 SC ; Start 01/25/19 at 20:00 Atorvastatin Calcium (Lipitor) 80 mg HS PO ; Start 01/25/19 at 21:00 Allergies: Coded Allergies: No Known Drug Allergy (Verified Allergy, Unknown, 08/30/16) Family History Significant Family History: no pertinent family hx Social History Alcohol Use: none Smoking Status: Former smoker Exam/Review of Systems Vital Signs Vitals Vital Signs Date Temp Pulse Resp B/P (MAP) Pulse Ox O2 O2 Flow FiO2 Time Delivery Rate 01/25/19 98.1 63 19 141/75 96 15:10 (97) 01/25/19 Room Air 02:35 Intake and Output 01/24/19 01/24/19 01/25/19 1515:00 23:00 07:00 IntakeIntake Total 120 ml BalanceBalance 120 ml Exam Constitutional: alert, oriented, other (obese) Psych: nl mood/affect Head: normocephalic, atraumatic Eyes: EOMI, nl lids, nl sclera ENMT: nl external ears & nose, nl lips & teeth Neck: supple; No jvd, No bruits Respiratory: clear to auscultation, normal air movement Cardiovascular: regular rate and rhythm, nl pulses, other (pain on palpation over lower right ribs); No murmurs/extra sounds Gastrointestinal: soft, nl liver, spleen, non-tender Musculoskeletal: nl extremities to inspection Extremities: normal pulses; No edema Neurological: nl mental status, other (speech somewhat difficult to understand) Skin: No rash or lesions Labs Result Diagram: 01/25/19 0054 01/25/19 0434 Results 24hrs Laboratory Tests Test 01/25/19 00:54 01/25/19 04:34 01/25/19 04:51 01/25/19 07:45 White Blood Count 5.9 # Red Blood Count 4.80 Hemoglobin 14.4 Hematocrit 43.1 Mean Corpuscular 89.8 Volume Mean Corpuscular 30.0 Hemoglobin Mean Corpuscular 33.4 Hemoglobin Concent Red Cell 14.0 Distribution Width Platelet Count 182 # Mean Platelet Volume 10.9 H Immature 0.200 Granulocytes % Neutrophils % 52.5 Lymphocytes % 39.0 Monocytes % 6.3 Eosinophils % 1.7 Basophils % 0.3 Nucleated Red Blood 0.0 Cells % Immature 0.010 Granulocytes # Neutrophils # 3.1 Lymphocytes # 2.3 Monocytes # 0.4 Eosinophils # 0.1 Basophils # 0.0 Nucleated Red Blood 0.0 Cells # Sodium Level 140 142 Potassium Level 2.9 *L 2.9 *L Chloride Level 98 99 Carbon Dioxide Level 33 H 35 H Anion Gap 9 8 Blood Urea Nitrogen 20 19 Creatinine 0.99 1.01 Est Glomerular > 60 > 60 Filtrat Rate mL/min Glucose Level 155 145 Calcium Level 9.1 9.3 Troponin I 0.013 < 0.012 < 0.012 Erythrocyte 23.0 H Sedimentation Rate D-Dimer 346.61 D-Dimer Comment Hemoglobin A1c 9.2 H Magnesium Level 1.9 Creatine Kinase 144 133 Creatine Kinase 0.7 0.6 Index Creatinine Kinase MB 1.00 0.84 (Mass) Thyroid Stimulating 0.836 Hormone (TSH) Bedside Glucose 184 Test 01/25/19 10:02 01/25/19 11:31 01/25/19 13:06 Creatine Kinase 122 121 Creatine Kinase 0.6 0.5 Index Creatinine Kinase MB 0.69 0.64 (Mass) Troponin I < 0.012 < 0.012 Bedside Glucose 186 Imaging Imaging sinus bradycardia at 55 bpm, nonspecific T wave inversions Medications Medications Current Medications Aspirin (Aspirin) 81 mg DAILY PO ; Start 01/25/19 at 09:00 Clonidine (Catapres) 0.2 mg Q8 PO Last administered on 01/25/19at 14:50; Admin Dose 0.2 MG; Start 01/25/19 at 06:00 Doxazosin Mesylate (Cardura) 4 mg DAILY@2100 PO ; Start 01/25/19 at 21:00 Gabapentin (Neurontin) 100 mg TID PO Last administered on 01/25/19 12:30; Admin Dose 100 MG; Start 01/25/19 at 09:00 Metformin HCl (Glucophage) 1,000 mg BID PO Last administered on 01/25/19 08:47; Admin Dose 1,000 MG; Start 01/25/19 at 09:00 Nifedipine (Procardia Xl) 60 mg DAILY PO Last administered on 01/25/19 08:47; Admin Dose 60 MG; Start 01/25/19 at 09:00 Spironolactone (Aldactone) 25 mg DAILY PO Last administered on 01/25/19 08:47; Admin Dose 25 MG; Start 01/25/19 at 09:00 Diagnostic Test (Pha) (Accu-Chek) 1 ea AC MEALS AND BEDTIME XX Last administered on 01/25/19at 11:31; Admin Dose 1 EA; Start 01/25/19 at 07:00 Linagliptin (Tradjenta) 5 mg DAILY PO Last administered on 01/25/19 08:47; Admin Dose 5 MG; Start 01/25/19 at 09:00 IV Flush (NS 3 ml) 3 ml PER PROTOCOL IV ; Start 01/25/19 at 02:30 Ondansetron HCl (Zofran Tab) 4 mg Q6H PRN PO NAUSEA/VOMITING; Start 01/25/19 at 02:30 Nitroglycerin (Nitroglycerin (Sl Tab) 0.4 Mg) 1 tab Q5M PRN SL .CHEST PAIN; Start 01/25/19 at 02:30 Acetaminophen (Tylenol Tab) 650 mg Q6H PRN PO .PAIN 1-3 OR TEMP; Start 01/25/19 at 02:30 Docusate Sodium (Colace) 100 mg Q12H PRN PO .CONSTIPATION; Start 01/25/19 at 02:30 Famotidine (Pepcid) 20 mg Q12 PO Last administered on 01/25/19at 08:47; Admin Do se 20 MG; Start 01/25/19 at 09:00 Enoxaparin Sodium (Lovenox) 40 mg DAILY SC Last administered on 01/25/19at 09:21; Admin Dose 40 MG; Start 01/25/19 at 09:00 Losartan Potassium (Cozaar) 100 mg DAILY PO Last administered on 01/25/19at 08:47; Admin Dose 100 MG; Start 01/25/19 at 09:00 Nitroglycerin (Nitroglycerin 2% Oint) 0.5 inch Q6 TD Last administered on 01/25/19at 12:31; Admin Dose 0.5 INCH; Start 01/25/19 at 04:31 Hydralazine HCl (Apresoline) 10 mg Q4H PRN IV ELEVATED BLOOD PRESSURE; Start 01/25/19 at 04:30 Insulin Glargine (Lantus) 12 units DAILY@2000 SC ; Start 01/25/19 at 20:00 Atorvastatin Calcium (Lipitor) 80 mg HS PO ; Start 01/25/19 at 21:00 GAB PAIGE Jan 25, 2019 16:01
--- NOTE | 2019-01-25 18:49 | PDOCDIS ---
Discharge Instructions DIAGNOSIS Discharge Diagnosis Non-cardiac right-sided chest pain CONDITION [id number] Patient Condition: [id number] Good HOME CARE INSTRUCTIONS: [id number] Diet Instructions: [id number] Special Diet: [id number] Diabetic diet ACTIVITY: [id number] Activity Restrictions: [id number] Slowly Increase Activity FOLLOW UP/APPOINTMENTS Follow-up Plan PCP in the next week, particularly to address high HgbA1c (9.2%) ISHA MEDINA M.D. Jan 25, 2019 18:49
[2019-01-25] MEDS ORDERED: ATOR20TA38 PO (18:52)
[2019-01-25] MEDS ORDERED: INSULIN GLARGINE [LANTus] (100 UNITS/ML) SYG SC SCH (20:00)
[2019-01-25] MEDS ORDERED: DOXAZOSIN 4 MG TAB PO SCH (21:00)
[2019-01-25] MEDS ORDERED: ATORVASTATIN 80 MG TAB PO SCH (21:00)
--- NOTE | 2019-01-26 16:42 | DS ---
Date/Time of Note Date/Time of Note DATE: 01/26/19 TIME: 16:36 Discharge Summary Admission/Discharge Info Admit Date/Time Jan 25, 2019 at 01:55 Discharge Date/Time Jan 25, 2019 at 20:40 Discharge Diagnosis Non-cardiac right-sided chest pain Patient Condition: Good Procedures echocardiogram Hx of Present Illness Mr. Sinclair is a 58-year-old man with a history of hypertension, type 2 diabetes, and previous stroke who presented to the [facility] emergency room with chest pain that began about 24 hours earlier. The pain was right-sided in location, with an aching and intermittent pressure feeling through the day. No radiation to face or arm. He has had similar pain off-and-on for years, he said, but it was much worse yesterday. The pain is lessened by deep breathing (not pleuritic) and by standing. Reclining is the most uncomfortable position. No previous cardiac disease history, and a treadmill test two years ago or so was thought to have been normal. He takes no cardiac medications aside from his blood pressure drugs (losartan, Cardura). He has previously been prescribed spironolactone, but said he did not remember taking it. He has a history of stroke in 2001, but is able to walk without a walker and has no difficulty swallowing. No smoking or drinking for many years. He checks sugars at home, and has had his eyes checked for diabetic retinopathy. He has right foot tingling and numbness, for which he takes gabapentin. Sleep apnea is another medical problem, which has been untreated. Hospital Course In the ER, the EKG showed ST and T-wave abnormalities, without acute ischemic changes. Troponins were negative x 3. Portable chest x-ray showed mild to moderate cardiomegaly without congestive heart failure or infiltrates. His potassium measured 2.9 in the ER, and again this morning after supplementation. His diabetes demonstrated poor control with a HgbA1c 9.2%. With elevated blood pressures overnight, he was treated with topical nitropaste. He received enoxaparin 40mg SQ for DVT prophylaxis. Dr. Nita Stapleton consulted for cardiology, and felt that he was safe to discharge home with non-cardiac chest pain as the diagnosis. His echocardiogram showed the following: * Moderate concentric left ventricular hypertrophy with normal systolic function. * Grade 1 diastolic dysfunction. * Mild left atrial enlargement. * Trace valvular regurgitations. * Mildly dilated ascending aorta at the level of the sinuses. Diabetic diet Increase activity as tolerated Follow-up with PCP in the next week I called in a prescription to his [facility] on [address] for restarting the spironolactone 25mg PO daily Mandy Qureshi MD PhD [phone] Home Meds Active Scripts Atorvastatin Calcium* (Atorvastatin Calcium*) 20 Mg Tablet, 20 MG PO QHS, #30 TAB Prov:ISHA QURESHI M.D. 01/25/19 Spironolactone* (Aldactone*) 25 Mg Tablet, 25 MG PO DAILY, #30 TAB Prov:RICK AN MD 09/01/16 Metformin Hcl (Glucophage) 500 Mg Tablet, 1000 MG PO BID, #60 TAB Prov:RICK AN MD 09/01/16 Aspirin (Aspirin) 81 Mg Chew, 81 MG PO DAILY, #30 TAB Prov:RICK AN MD 09/01/16 Reported Medications Valsartan* (Diovan*) 320 Mg Tablet, 320 MG PO DAILY, TAB 08/30/16 Saxagliptin Hcl* (Onglyza*) 5 Mg Tablet, 5 MG PO DAILY, TAB 08/30/16 Gabapentin* (Gabapentin*) 100 Mg Capsule, 100 MG PO TID, #90 CAP 08/30/16 Clonidine Hcl* (Clonidine Hcl*) 0.2 Mg Tablet, 0.2 MG PO Q8, TAB 08/30/16 Nifedipine* (Nifedical XL*) 60 Mg/Bottle Tab.osm.24, 60 MG PO DAILY 12/01/12 Doxazosin Mesylate* (Cardura*) 4 Mg Tablet, 4 MG PO DAILY 12/01/12 Follow-up Plan PCP in the next week, particularly to address high HgbA1c (9.2%) Primary Care Provider Ruiz Turpin MD Pending Labs Laboratory Tests Test 01/25/19 17:15 Bedside Glucose 151 mg/dL (70-220) ISHA QURESHI M.D. Jan 26, 2019 16:42
== END 2019-01-25 20:40 | disposition home or self-care (01) ==
LOC: E/R 23:41 → 6WM 01-25 01:55
PROVIDERS: ADMIT Internal Medicine; ATTEND Internal Medicine
DX: R07.89 Other chest pain (principal); I10 Essential (primary) hypertension; E11.40 Type 2 diabetes mellitus with diabetic neuropathy, unspecified; I69.354 Hemiplegia and hemiparesis following cerebral infarction affecting left non-dominant side; E87.6 Hypokalemia; G47.30 Sleep apnea, unspecified; Z79.82 Long term (current) use of aspirin; Z79.84 Long term (current) use of oral hypoglycemic drugs; E66.9 Obesity, unspecified; Z68.38 Body mass index [BMI] 38.0-38.9, adult; Z87.891 Personal history of nicotine dependence
CPT/HCPCS: 71045; 80048; 80061; 82550; 82553; 82962; 83036; 83735; 84443; 84484; 85025; 85378; 85651; 93306; G0378; J1650; J1815; J3475; 36415; 93005; 96374

== ENCOUNTER 2019-03-29 00:24 | Emergency (ER) | payer BC, OTHER ==
[~2019-03-29] VITALS: Ht 172.7 cm; Wt 114.9 kg
[~2019-03-29 00:24] MED LIST changes: +ATOR20TA38 PO
[2019-03-29 00:29] VITALS: PULSE 58; RESP 18; Ht 172.7 cm; Wt 114.9 kg
[2019-03-29 02:16] VITALS: BP 216/95
== END 2019-03-29 04:10 | disposition left against medical advice (07) ==
LOC: FTE 00:24
DX: Z53.21 Procedure and treatment not carried out due to patient leaving prior to being seen by health care provider (principal)